=== PATIENT | female | born 1965 | race Caucasian/White ===

== ENCOUNTER 2017-09-29 09:50 | Emergency (ER) | payer OTHER ==
[~2017-09-29] VITALS: Ht 157.5 cm; Wt 74.4 kg
[~2017-09-29 09:50] MED LIST: CMP5 PO; DRGTP75 TD; EFF375 PO; OXYC-57 PO
[2017-09-29 09:53] VITALS: BP 152/75; PULSE 94; TEMP 36.7; O2SAT 97; Ht 157.5 cm; Wt 74.4 kg
[2017-09-29] MEDS ORDERED: hydrOXYzine HCL 25 MG TAB PO STA (10:10)
[2017-09-29] MEDS ORDERED: CLONAZEPAM 0.5 MG TAB PO STA (10:10)
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
[2017-09-29] MEDS ORDERED: HYDR50CA2 PO (10:21)
[2017-09-29] MEDS ORDERED: CLON0.5T9 PO (10:21)
[2017-09-29] MEDS ORDERED: BACL1TAB PO (10:21)
[2017-09-29] MEDS ORDERED: DICY20TA35 PO (10:23)
[2017-09-29] MEDS ORDERED: PRAZ1CAP10 PO (10:23)
[2017-09-29] MEDS ORDERED: ZOLP10TA PO (10:23)
[2017-10-24] MEDS ORDERED: KLN/5 PO (11:43)
[2017-10-31] MEDS ORDERED: KLN/5 PO (09:25)
[2017-11-25] MEDS ORDERED: BUPR-83 PO (10:13)
[2017-11-25] MEDS ORDERED: KLN/5 PO (10:13)
[2017-11-25] MEDS ORDERED: MELA1TAB5 PO (11:43)
[2017-12-23] MEDS ORDERED: DICY20TA10 PO ×2 (10:11→15:11)
[2017-12-23] MEDS ORDERED: BACL10TA PO (10:13)
[2017-12-23] MEDS ORDERED: HYDR50CA2 PO (10:13)
[2017-12-23] MEDS ORDERED: ESCI1TAB10 PO (10:23)
[2017-12-23] MEDS ORDERED: ACET-1256 PO (11:45)
[2017-12-23] MEDS ORDERED: PRAZ2CAP3 PO (13:37)
[2017-12-23] MEDS ORDERED: METH10CO PO (13:44)
[2017-12-23] MEDS ORDERED: ZOLP10TA PO (13:44)
== END 2017-09-29 10:48 | disposition home or self-care (01) ==
LOC: C.EDB 09:52 → C.EDA 10:48
DX: F41.9 Anxiety disorder, unspecified (principal); M54.9 Dorsalgia, unspecified; G89.29 Other chronic pain; K58.9 Irritable bowel syndrome, unspecified; F17.210 Nicotine dependence, cigarettes, uncomplicated; Z79.899 Other long term (current) drug therapy

== ENCOUNTER 2017-10-24 10:21 | Inpatient (IN) | payer OTHER ==
[~2017-10-24] VITALS: Ht 157.5 cm; Wt 74.3 kg
[~2017-10-24 10:21] MED LIST changes: +BACL1TAB PO; +CLON0.5T3 PO; -CMP5 PO; +DICY20TA35 PO; -DRGTP75 TD; -EFF375 PO; +ESCI1TAB10 PO; +HYDR50CA2 PO; -OXYC-57 PO; +PRAZ1CAP10 PO; +ZOLP10TA PO
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
[2017-10-24 11:40] LABS: BASO % 0.2 %; BASO ABS # 0.02 K/uL (0-0.2); EOS % 0.1 %; EOS ABS # 0.01 K/uL (0-0.5); HEMATOCRIT 33.9 % (37-47); HEMOGLOBIN 11.7 g/dL (12.0-16.0); IG# 0.02 K/uL (0.00-0.02); LYMPH % 26.3 %; MEAN CELL VOLUME 91.4 fL (80-100); MEAN CORPUSCULAR HEMOGLOBIN 31.5 pg (25-34); MEAN CORPUSCULAR HGB CONC 34.5 g/dl (32-36); MEAN PLATELET VOLUME 8.1 fL (7.4-10.4); MONO % 5.9 %; MONO ABS # 0.52 K/uL (0.11-0.59); NEUT % 67.3 %; NEUT ABS # 5.87 K/uL (1.4-6.5); PLATELET COUNT 361 K/uL (130-400); RED CELL DISTRIBUTION WIDTH CV 13.2 % (11.5-14.5); RED CELL DISTRIBUTION WIDTH SD 44.1 fL (36.4-46.3); WHITE BLOOD COUNT 8.74 K/uL (4.8-10.8)
[2017-10-24] MEDS ORDERED: CLON0.5T3 PO (11:43)
[2017-10-24] MEDS ORDERED: MELA1TAB5 PO (11:43)
[2017-10-24] MEDS ORDERED: BACL10TA PO ×2 (11:43→17:16)
[2017-10-24] MEDS ORDERED: METHADONE LIQUID PO (11:43)
[2017-10-24] MEDS ORDERED: ACET-1256 PO (11:45)
[2017-10-24] MEDS ORDERED: HYDR50CA2 PO ×2 (11:51→13:37)
[2017-10-24 12:02] LABS: CALCIUM 9.4 mg/dl (8.5-10.1); CREATININE 0.76 mg/dl (0.60-1.20); POTASSIUM 3.7 mmol/L (3.5-5.1)
[2017-10-24 12:12] LABS: TOTAL PROTEIN 7.7 gm/dl (6.4-8.2)
[2017-10-24] MEDS ORDERED: hydrOXYzine HCL 25 MG TAB PO STA (12:37)
[2017-10-24] MEDS ORDERED: PRAZ2CAP3 PO (13:37)
[2017-10-24 13:46] VITALS: O2SAT 97
[2017-10-24] MEDS ORDERED: ALUMINUM/MAGNESIUM SUSP 30 ML UDC PO PRN (14:45)
[2017-10-24] MEDS ORDERED: hydrOXYzine HCL 25 MG TAB PO PRN (14:45)
[2017-10-24] MEDS ORDERED: MAGNESIUM HYDROXIDE SUSP 30 ML UDC PO PRN (14:45)
[2017-10-24 14:46] VITALS: BP 137/82; PULSE 76; TEMP 37.1; BMI 30.0
[2017-10-24] MEDS: ACETAMINOPHEN 325 MG TAB PO PRN (16:26)
[2017-10-24] MEDS: NICOTINE POLACRILEX 2 MG GUM MT PRN ×2 (18:28→20:47)
[2017-10-24] MEDS: NICOTINE 21 MG/24 HR TDSY TD SCH (19:02)
[2017-10-24] MEDS: IBUPROFEN 200 MG TAB PO PRN (19:33)
[2017-10-24] MEDS: CLONAZEPAM 0.5 MG TAB PO SCH ×2 (19:36→22:45)
[2017-10-24] MEDS: DICYCLOMINE HCL 20 MG TAB PO SCH ×2 (20:05→22:45)
[2017-10-24] MEDS: BACLOFEN TAB 20 MG TAB PO SCH (21:45)
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
[2017-10-24] MEDS ORDERED: PRAZOSIN HCL 1 MG CAP PO SCH (22:00)
[2017-10-24] MEDS: ZOLPIDEM TARTRATE 10 MG TAB PO SCH (22:45)
[2017-10-25 06:43] VITALS: BP_SYST 106; BP_SYST 112; BP_DIAS 70; BP_DIAS 74; PULSE 107; PULSE 89; TEMP 36.7
[2017-10-25] MEDS: ACETAMINOPHEN 325 MG TAB PO PRN (07:04)
[2017-10-25] MEDS: NICOTINE POLACRILEX 2 MG GUM MT PRN ×7 (07:04→21:06)
[2017-10-25] MEDS: SODIUM CHLORIDE 0.65% NA SOLN 45 ML (OCEAN) PRN ×2 (07:05→07:34)
[2017-10-25] MEDS: METHADONE ORAL SOLN 2 MG/1ML PO SCH (08:30)
[2017-10-25] MEDS: ESCITALOPRAM OXALATE 20 MG TAB PO SCH (08:30)
[2017-10-25] MEDS: CLONAZEPAM 0.5 MG TAB PO SCH (08:30)
[2017-10-25] MEDS: BACLOFEN 10 MG TAB PO SCH (08:30)
[2017-10-25] MEDS: DICYCLOMINE HCL 20 MG TAB PO SCH ×4 (08:30→21:58)
[2017-10-25] MEDS: PATIENT'S OWN CONTROLLED MED PO SCH (08:31)
[2017-10-25] MEDS: NICOTINE 21 MG/24 HR TDSY TD SCH (08:31)
[2017-10-25] MEDS: hydrOXYzine HCL 25 MG TAB PO PRN ×4 (11:52→21:57)
--- NOTE | 2017-10-25 14:46 | Psychiatric Progress Notes ---
Progress Note Date of Service Oct 25, 2017. Interval History Saundra Dubon is a 52-year-old female admitted on Oct 24, 2017 at 14:03 who currently lives in [place], [place] with her fianceArmani. Saundra Dubon was admitted on a 201 voluntary commitment. Patient is admitted from home. The patient was brought to the ED by self-transport. Information provided by the patient is considered to be reliable. Chief Complaint "I'm still pretty anxious". Subjective Patient was seen & assessed interval progress reviewed with Treatment Team. Pt states she is still feeling rather anxious, but she was successful at taking care of ADLs and feels proud that she was able to shower and take care of hygiene activities today. She states she slept very well last evening. Some time was spent during this encounter discussing past opiate use. She states she has never abused opiates in the past, but has needed opiate pain medication to manage chronic back pain from her 7 spinal surgeries. Pt states she has tried a variety of medications, but has never diverted them or abused them. She reports past trial of Suboxone 1 year ago, which was not helpful. She states methadone has worked the best to control her pain symptoms and allow her to continue with daily activities. It was discussed with that patient that it is not our recommendation that she remain on Klonopin while taking methadone due to safety concerns and potential serious complications with concurrent use of the two medications. She is initially very resistant and unwilling for a taper of Klonopin, but after several conversations as the day progresses, she has come to terms with the suggestion to decrease Klonopin while offering Vistaril, which she reports works well for her anxiety. I informed patient that I would attempt to reach her outpatient providers to discuss their plans and in the meantime will continue with taper as explained. She denies SI currently, but depression and anxiety are ongoing. Review of Systems Psych: denies symptoms other than stated above Constitutional: chronic back pain, manageable Cardiovascular: denied GI: denied Neurologic: denied Remainder of 10 body systems also reviewed and denied other than noted above. Sleep Information Total Hours of Sleep: 5.50 Meal Information Percent of Breakfast Consumed: 0 Percent of Dinner Consumed: 100 Mental Status Exam During interview pt is: alert and oriented, cooperative Appearance: appropriately dressed, appropriately groomed Eye contact is: good Motor behavior is: steady gait & station, no abnormal motor movements Speech: normal in rate, rhythm & volume Affect: mood congruent, depressed, anxious Mood is: anxious Thought process: goal directed, linear, logical Thought content: reality based without delusions Suicidal thought are: denied (currently, thoughts to OD leading to admission), Plan: present (OD on prescriptions or use carbon monoxide), Intent: denied Homicidal thoughts are: denied Hallucinations: denies auditory, denies visual Cognition: memory grossly intact, attention grossly intact, language grossly intact Intelligence estimated to be: consistent with level of education Insight: fair Judgement: fair Impression Improvement in symptoms since admission. Pt reports better ability to perform ADLs and has showered and groomed since admission. Previous stable on current medication regimen without side effects. Due to recent SI and depression, will plan to add Wellbutrin 100mg BID for depressive symptoms. Pt also has reported decreased libido which may respond well to addition of Wellbutrin. Pt states she has tolerated well in the past and is in agreement to adding the medication. Risks, benefits, side effects, and alternatives were discussed. Pt verbalized understanding. Klonopin decreased to 0.25mg BID as not appropriate for her to continue on benzodiazepine and methadone. Pt has orders for prn Vistaril and can make other plans to augment for potential increase in anxiety as well. Requires inpatient hospitalization at this time due to high risk of suicide attempt. If risk factors are not mitigated and processed prior to discharge, she is at high risk for decompensation. Plan (1) Suicidal ideation 10/24 - Every 15 minute checks for safety - Involvement of identified support to establish and encourage safety planning - Encourage participation in group activities and therapy (2) Major depressive disorder, recurrent severe without psychotic features 10/24 - Continue home medications: escitalopram 20mg daily, Klonopin 0.5mg BID, Vistaril 50mg BID as patient feels they have been rather helpful. Will re- evaluate once collateral information is gained from patient's outpatient providers. Ordered home doses of Ambien 10mg and melatonin 3mg for sleep difficulty. - Encourage family meeting with fiance or children when appropriate. - Encourage participation in group activities and therapy while on the unit - Coordination of care with outpatient providers. 10/25 - Wellbutrin 100mg BID (7-1400) added to patient's current dose of escitalopram 20mg. Risks, benefits, alternatives, and side effects discussed prior to starting medication. Pt has tolerated medication well in the past and verbalizes understanding. - Encourage family meeting with identified supports. - Encourage participation in groups while admitted to the unit. (3) Generalized anxiety disorder 10/24 - Ordered current home medications of Klonopin 0.5mg BID and Vistaril 50mg BID scheduled for anxiety. Will assess level of anxiety while on the unit and determine if alteration of medication regimen is appropriate. 10/25 - Plan to decrease Klonopin to .25mg BID as it is not appropriate for patient to be on benzodiazepine and methadone. Will continue to taper Klonopin and adjust Vistaril or add alternative agent as needed once anxiety level has been assessed. Restarted Vistaril 25mg q4h prn which can be given between her prn BID Vistaril 50mg. - Call placed to pt's outpatient prescriber, Dr. Cruz at [facility] - [phone] for [place] office. Left message to discuss Klonopin taper as patient has been undergoing the process on an outpatient basis. Pt reports she has been on 0.5mg BID for the past 6 months. - Pt is aware that our recommendation is to taper Klonopin dose and eventually discontinue due to safety concerns with current involvement with the methadone clinic. She is resistant to the change but has respected that we are reaching out to her outpatient providers to provide collateral information. At this time, will order Klonopin 0.25mg BID to begin taper. Pt will not be provided with prescription upon discharge from the hospital and we hope to hear from her outpatient provider to assist with this process. (4) Back pain 10/24 - Pt currently treated at methadone clinic. Current dose of 186mg liquid PO daily was verified with [facility] and dosing was ordered. Pt is also prescribed baclofen for chronic back and neck pain resulting from 7 spinal surgeries. Pt requested Tylenol and Advil prn for back pain and pain related to fibromyalgia as well. Pt's admission criteria reviewed with Dr. Francisco who supplied admission orders. No changes to medication regimen at this time, but ongoing review with supervision physicians during her stay to assess treatment plan. Discharge / Aftercare Planning Primary Care Physician: Name: Lj/DALY Therapist: Name: Anne[facility] Case Manager: Name: None Visit Code E&M Code: 49852 Inventory Assets Strengths: willingness for treatment, supportive family, established outpatient providers Needs: mediate risk factors, education and processing of depressive and anxiety symptoms. Risk Factors Assessment : Yes /single/: Yes Health problems: Yes Mental Health Diagnoses: Yes Substance use disorders: No Previous attempt: No Previous psychiatric stay: Yes Hopelessness: Yes Smoker: Yes Protective Factors Assessment Gnosticism beliefs: Yes : No Responsible for young children: No Employed: No Stable relationships: Yes Supportive family: Yes Data Vital Signs Last 24 Hrs: Date Time Temp Pulse Resp B/P (MAP) Pulse Ox O2 Delivery O2 Flow Rate FiO2 10/25/17 06:43 36.7 107 18 112/74 89 106/70 10/24/17 14:46 37.1 76 16 137/82 Meds Administered Last 24 Hrs: Meds Administered (Past 24Hrs) Medications (Trade) Dose Ordered Sig/Raymond Route Start Time Stop Time Status Last Admin Dose Admin Hydroxyzine HCl (Vistaril Tab) 25 mg NOW STAT PO 10/24/17 12:37 10/24/17 18:37 DC 10/24/17 12:44 25 MG Acetaminophen (Tylenol Tab) 650 mg Q4H PRN PO 10/24/17 14:45 11/23/17 14:44 10/25/17 07:04 650 MG Sodium Chloride ([place] Nasal [place]) PRN PRN NA 10/24/17 14:45 11/23/17 14:44 10/25/17 07:34 1 SPRAYS Hydroxyzine HCl (Vistaril Tab) 25 mg Q4H PRN PO 10/24/17 14:45 10/24/17 18:37 DC 10/24/17 16:24 25 MG Nicotine (Nicoderm Cq 21MG Patch) 1 patch QAM TD 10/25/17 09:00 10/25/17 11:52 DC 10/25/17 08:31 1 PATCH Nicotine Polacrilex (Nicorette 2MG Gum) 1 piece Q2H PRN MT 10/24/17 18:15 10/25/17 11:52 DC 10/25/17 09:12 1 PIECE Ibuprofen (Advil Tab) 400 mg TID PRN PO 10/24/17 18:15 11/23/17 18:14 10/24/17 19:33 400 MG Baclofen (Lioresal Tab) 10 mg QAM PO 10/25/17 09:00 11/24/17 08:59 10/25/17 08:30 10 MG Baclofen (Lioresal Tab) 20 mg HS PO 10/24/17 22:00 11/23/17 21:59 10/24/17 21:45 20 MG Clonazepam (Klonopin Tab) 0.5 mg BID PO 10/24/17 18:30 10/25/17 13:59 DC 10/25/17 08:30 0.5 MG Dicyclomine HCl (Bentyl Tab) 20 mg QID PO 10/24/17 18:30 11/23/17 18:29 10/25/17 11:56 20 MG Escitalopram Oxalate (Lexapro Tab) 20 mg QAM PO 10/25/17 09:00 11/24/17 08:59 10/25/17 08:30 20 MG Hydroxyzine HCl (Vistaril Tab) 50 mg BID PRN PO 10/24/17 18:30 11/23/17 18:29 10/25/17 11:52 50 MG Prazosin HCl (Prazosin) 4 mg HS PO 10/24/17 22:00 11/23/17 21:59 10/24/17 21:46 4 MG Zolpidem Tartrate (Ambien Tab) 10 mg HS PO 10/24/17 22:00 11/23/17 21:59 10/24/17 22:45 10 MG Methadone HCl (Methadone HCl) 186 mg QAM PO 10/25/17 09:00 11/08/17 08:59 10/25/17 08:30 186 MG Non-Formulary Medication (Patient'S Own Controlled Med) 1 ea QAM PO 10/25/17 09:00 11/08/17 08:59 10/25/17 08:31 1 EA Nicotine Polacrilex (Nicorette 2MG Gum) Chew and "park" in cheek ... Q2H PRN MT 10/25/17 12:00 11/23/17 18:14 10/25/17 13:30 2 PIECE
[2017-10-25] MEDS: GUAIFENESIN 600 MG TABCR PO PRN (16:32)
[2017-10-25] MEDS: FLUTICASONE PROPIONATE NA SPR 16 GM BTL NAE PRN (19:18)
[2017-10-25] MEDS: BACLOFEN TAB 20 MG TAB PO SCH (21:06)
[2017-10-25] MEDS: PRAZOSIN HCL 1 MG CAP PO SCH (21:57)
[2017-10-25] MEDS ORDERED: CLONAZEPAM 0.5 MG TAB PO ONE (22:00)
[2017-10-25] MEDS ORDERED: CLONAZEPAM 0.5 MG TAB PO SCH (22:00)
[2017-10-25] MEDS: IBUPROFEN 200 MG TAB PO PRN (22:01)
[2017-10-25] MEDS: ZOLPIDEM TARTRATE 10 MG TAB PO SCH (22:02)
[2017-10-26] MEDS: GUAIFENESIN 600 MG TABCR PO PRN ×2 (06:02→17:04)
[2017-10-26 06:51] VITALS: BP_SYST 105; BP_SYST 112; BP_DIAS 71; BP_DIAS 72; PULSE 85; PULSE 93; TEMP 36.8
[2017-10-26] MEDS ORDERED: hydrOXYzine HCL 25 MG TAB PO PRN (07:00)
[2017-10-26] MEDS: hydrOXYzine HCL 25 MG TAB PO PRN ×3 (07:15→21:17)
[2017-10-26] MEDS: NICOTINE POLACRILEX 2 MG GUM MT PRN ×7 (07:17→21:59)
[2017-10-26] MEDS: DICYCLOMINE HCL 20 MG TAB PO SCH ×4 (08:35→21:15)
[2017-10-26] MEDS: CLONAZEPAM 0.5 MG TAB PO SCH ×2 (08:35→21:16)
[2017-10-26] MEDS: ESCITALOPRAM OXALATE 20 MG TAB PO SCH (08:36)
[2017-10-26] MEDS: METHADONE ORAL SOLN 2 MG/1ML PO SCH (08:36)
[2017-10-26] MEDS: BACLOFEN 10 MG TAB PO SCH ×3 (08:36→21:16)
[2017-10-26] MEDS: NICOTINE 14 MG/24 HR TDSY TD SCH (08:38)
[2017-10-26] MEDS: FLUTICASONE PROPIONATE NA SPR 16 GM BTL NAE PRN (08:46)
[2017-10-26] MEDS: PATIENT'S OWN CONTROLLED MED PO SCH (08:46)
[2017-10-26] MEDS: IBUPROFEN 200 MG TAB PO PRN ×2 (09:34→21:17)
--- NOTE | 2017-10-26 10:21 | Psychiatric Progress Notes ---
Progress Note Date of Service Oct 26, 2017. Interval History Saundra Dubon is a 52-year-old female admitted on Oct 24, 2017 at 14:03 who currently lives in [place], [place] with her fianceArmani. Saundra Dubon was admitted on a 201 voluntary commitment. Patient is admitted from home. The patient was brought to the ED by self-transport. Information provided by the patient is considered to be reliable. Chief Complaint "Just a little confused about when I can get my medications". Subjective Patient was seen & assessed interval progress reviewed with Nursing. Nursing passed on that her dose of methadone should be administered at 8:30 am to provide consistency between staff and compromise with the patient's frequent requests to receive it earlier in the morning. Pt was seen today along with weekend covering psychiatrist, Dr. Nicole. Pt states she is still a bit anxious this morning. She reports that her anxiety is typically worse in the morning and improves later in the evening as she is winding down for the night. She continues to question medications and time of dosing and almost perseverating on the decreased dose of Klonopin she is aware she will be receiving today. Pt requests multiple timing changes to dosage of medications. It was explained that medication times are often scheduled around staffing availability and that we would do our best to juan m her requests where able. She states she has noticed a difference thus far with the addition of Wellbutrin and is interested in clarifying when she is able to ask for prn Vistaril. Pt reports she has been working in community meetings at setting goals and has been successful at reaching as she has called her outpatient provider and is planning to call one of her children today. She continues to take advantage of increased appetite in the evenings and has been sleeping well. Pt denies SI/HI, and A/V hallucinations. Review of Systems Psych: denies symptoms other than stated above Constitutional: denied Cardiovascular: denied GI: denied Neurologic: denied Musculoskeletal: reports chronic back pain Remainder of 10 body systems also reviewed and denied other than noted above. Sleep Information Total Hours of Sleep: 3.75 Meal Information Percent of Breakfast Consumed: 10 Percent of Lunch Consumed: 25 Percent of Dinner Consumed: 100 Mental Status Exam During interview pt is: alert and oriented, cooperative Appearance: appropriately dressed, appropriately groomed Eye contact is: good Motor behavior is: steady gait & station, no abnormal motor movements Speech: normal in rate, rhythm & volume Affect: mood congruent, irritable (defensive about medications), anxious Mood is: anxious Thought process: goal directed, linear, logical Thought content: reality based without delusions Suicidal thought are: denied (present prior to admission), Plan: present (OD on prescriptions or use carbon monoxide), Intent: denied Homicidal thoughts are: denied Hallucinations: denies auditory, denies visual Cognition: memory grossly intact, attention grossly intact, language grossly intact Intelligence estimated to be: consistent with level of education Insight: fair Judgement: fair Impression Functioning appears to have improved since admission. She continues to report anxiety that is worse in the mornings. Long discussion was had about need for reduction and discontinuation of Klonopin. She continues to be apprehensive about changing medications and is concerned about being tapered off too quickly. She was reassured that our intention is not to create anxiety and that prn medications have been provided to her for her use during this time. Attempt was made yesterday to reach her outpatient psychiatrist for feedback and recommendations on this taper, but I have not heard back from the office. She denies side effects to Wellbutrin at this time. Requires inpatient hospitalization at this time due to high risk of suicide attempt and need for medication adjustments. If risk factors are not mitigated and processed prior to discharge, she is at high risk for decompensation. Plan (1) Suicidal ideation 10/24 - Every 15 minute checks for safety - Involvement of identified support to establish and encourage safety planning - Encourage participation in group activities and therapy (2) Major depressive disorder, recurrent severe without psychotic features 10/24 - Continue home medications: escitalopram 20mg daily, Klonopin 0.5mg BID, Vistaril 50mg BID as patient feels they have been rather helpful. Will re- evaluate once collateral information is gained from patient's outpatient providers. Ordered home doses of Ambien 10mg and melatonin 3mg for sleep difficulty. - Encourage family meeting with fiance or children when appropriate. - Encourage participation in group activities and therapy while on the unit - Coordination of care with outpatient providers. 10/25 - Wellbutrin 100mg BID (7-1400) added to patient's current dose of escitalopram 20mg. Risks, benefits, alternatives, and side effects discussed prior to starting medication. Pt has tolerated medication well in the past and verbalizes understanding. - Encourage family meeting with identified supports. - Encourage participation in groups while admitted to the unit. 10/26 - Wellbutrin administration changed to 8:30 and 2:00 to allow for dose to be given with other morning medications which includes her methadone dose. - Encourage phone meeting with bryce if willing - Encourage participation in groups, specifically with focus on managing anxiety. (3) Generalized anxiety disorder 10/24 - Ordered current home medications of Klonopin 0.5mg BID and Vistaril 50mg BID scheduled for anxiety. Will assess level of anxiety while on the unit and determine if alteration of medication regimen is appropriate. 10/25 - Plan to decrease Klonopin to .25mg BID as it is not appropriate for patient to be on benzodiazepine and methadone. Will continue to taper Klonopin and adjust Vistaril or add alternative agent as needed once anxiety level has been assessed. Restarted Vistaril 25mg q4h prn which can be given between her prn BID Vistaril 50mg. - Call placed to pt's outpatient prescriber, Dr. Cruz at [facility] - for [place] office. Left message to discuss Klonopin taper as patient has been undergoing the process on an outpatient basis. Pt reports she has been on 0.5mg BID for the past 6 months. - Pt is aware that our recommendation is to taper Klonopin dose and eventually discontinue due to safety concerns with current involvement with the methadone clinic. She is resistant to the change but has respected that we are reaching out to her outpatient providers to provide collateral information. At this time, will order Klonopin 0.25mg BID to begin taper. Pt will not be provided with prescription upon discharge from the hospital and we hope to hear from her outpatient provider to assist with this process. 10/26 - Klonopin to be reduced to 0.25mg BID starting this morning. Pt aware that she has prn Vistaril available for anxiety. - Encouraged to focus on distraction techniques and ways she can better manage her anxiety to help augment medications. (4) Back pain 10/24 - Pt currently treated at methadone clinic. Current dose of 186mg liquid PO daily was verified with [facility] and dosing was ordered. Pt is also prescribed baclofen for chronic back and neck pain resulting from 7 spinal surgeries. Pt requested Tylenol and Advil prn for back pain and pain related to fibromyalgia as well. 10/26 - Baclofen was also ordered as 10mg TID rather than the 10mg qAM and 20mg qHS as listed in her med rec, per patient's request. Discharge / Aftercare Planning Primary Care Physician: Name: Lj/DALY Therapist: Name: Anne-Marie/[place] [employer]: Name: None Visit Code E&M Code: 90561 Inventory Assets Strengths: willingness for treatment, supportive family, established outpatient providers Needs: mediate risk factors, education and processing of depressive and anxiety symptoms. Risk Factors Assessment : Yes /single/: Yes Health problems: Yes Mental Health Diagnoses: Yes Substance use disorders: No Previous attempt: No Previous psychiatric stay: Yes Hopelessness: Yes Smoker: Yes Protective Factors Assessment Hindu beliefs: Yes : No Responsible for young children: No Employed: No Stable relationships: Yes Supportive family: Yes Data Vital Signs Last 24 Hrs: Date Time Temp Pulse Resp B/P (MAP) Pulse Ox O2 Delivery O2 Flow Rate FiO2 10/26/17 06:51 36.8 85 16 112/72 93 105/71 Meds Administered Last 24 Hrs: Meds Administered (Past 24Hrs) Medications (Trade) Dose Ordered Sig/Raymond Route Start Time Stop Time Status Last Admin Dose Admin Hydroxyzine HCl (Vistaril Tab) 25 mg NOW STAT PO 10/24/17 12:37 10/24/17 18:37 DC 10/24/17 12:44 25 MG Acetaminophen (Tylenol Tab) 650 mg Q4H PRN PO 10/24/17 14:45 11/23/17 14:44 10/25/17 07:04 650 MG Sodium Chloride ([place] Nasal [place]) PRN PRN NA 10/24/17 14:45 11/23/17 14:44 10/25/17 07:34 1 SPRAYS Hydroxyzine HCl (Vistaril Tab) 50 mg HSZ PRN PO 10/24/17 14:45 11/23/17 14:44 10/25/17 21:57 50 MG Hydroxyzine HCl (Vistaril Tab) 25 mg Q4H PRN PO 10/24/17 14:45 10/24/17 18:37 DC 10/24/17 16:24 25 MG Nicotine (Nicoderm Cq 21MG Patch) 1 patch QAM TD 10/25/17 09:00 10/25/17 11:52 DC 10/25/17 08:31 1 PATCH Nicotine Polacrilex (Nicorette 2MG Gum) 1 piece Q2H PRN MT 10/24/17 18:15 10/25/17 11:52 DC 10/25/17 09:12 1 PIECE Ibuprofen (Advil Tab) 400 mg TID PRN PO 10/24/17 18:15 11/23/17 18:14 10/26/17 09:34 400 MG Baclofen (Lioresal Tab) 10 mg QAM PO 10/25/17 09:00 11/24/17 08:59 10/26/17 08:36 10 MG Baclofen (Lioresal Tab) 20 mg HS PO 10/24/17 22:00 11/23/17 21:59 10/25/17 21:06 20 MG Clonazepam (Klonopin Tab) 0.5 mg BID PO 10/24/17 18:30 10/25/17 13:59 DC 10/25/17 08:30 0.5 MG Dicyclomine HCl (Bentyl Tab) 20 mg QID PO 10/24/17 18:30 11/23/17 18:29 10/26/17 08:35 20 MG Escitalopram Oxalate (Lexapro Tab) 20 mg QAM PO 10/25/17 09:00 11/24/17 08:59 10/26/17 08:36 20 MG Hydroxyzine HCl (Vistaril Tab) 50 mg BID PRN PO 10/24/17 18:30 11/23/17 18:29 10/26/17 07:15 50 MG Prazosin HCl (Prazosin) 4 mg HS PO 10/24/17 22:00 10/25/17 15:37 DC 10/24/17 21:46 4 MG Zolpidem Tartrate (Ambien Tab) 10 mg HS PO 10/24/17 22:00 11/23/17 21:59 10/25/17 22:02 10 MG Methadone HCl (Methadone HCl) 186 mg QAM PO 10/25/17 09:00 11/08/17 08:59 10/26/17 08:36 186 MG Non-Formulary Medication (Patient'S Own Controlled Med) 1 ea QAM PO 10/25/17 09:00 11/08/17 08:59 10/26/17 08:46 1 EA Nicotine Polacrilex (Nicorette 2MG Gum) Chew and "park" in cheek ... Q2H PRN MT 10/25/17 12:00 11/23/17 18:14 10/26/17 09:35 2 PIECE Fluticasone Propionate (Flonase Nasal [place]) 1-2 sprays in each nost... DAILY PRN FLAKITO 10/25/17 12:00 11/25/17 11:59 10/26/17 08:46 1 SPRAYS Nicotine (Nicoderm Cq 14MG Patch) 1 patch QAM TD 10/26/17 09:00 11/25/17 08:59 10/26/17 08:38 1 PATCH Bupropion HCl (Wellbutrin Tab) 100 mg [id number] PO 10/25/17 14:00 11/24/17 13:59 10/26/17 07:14 100 MG Guaifenesin (Mucinex Contr Rel Tab) 600 mg Q12 PRN PO 10/25/17 14:30 11/24/17 14:29 10/26/17 06:02 600 MG Clonazepam (Klonopin Tab) 0.25 mg BID PO 10/26/17 09:00 11/23/17 18:29 10/26/17 08:35 0.25 MG Clonazepam (Klonopin Tab) 0.5 mg HS ONCE PO 10/25/17 22:00 10/25/17 22:01 DC 10/25/17 21:06 0.5 MG Prazosin HCl (Prazosin) 4 mg HS PO 10/25/17 22:00 11/23/17 21:59 10/25/17 21:57 4 MG
[2017-10-26 13:43] VITALS: BP 105/71; PULSE 85; PULSE 93; TEMP 36.8; Ht 157.5 cm; Wt 74.3 kg
[2017-10-26] MEDS: ACETAMINOPHEN 325 MG TAB PO PRN (15:57)
[2017-10-26] MEDS: ZOLPIDEM TARTRATE 10 MG TAB PO SCH (21:15)
[2017-10-26] MEDS: PRAZOSIN HCL 1 MG CAP PO SCH (21:16)
[2017-10-27 06:59] VITALS: BP_SYST 102; BP_SYST 122; BP_DIAS 66; BP_DIAS 69; PULSE 106; PULSE 92; TEMP 36.8
[2017-10-27] MEDS: NICOTINE POLACRILEX 2 MG GUM MT PRN ×7 (08:13→20:35)
[2017-10-27] MEDS: PATIENT'S OWN CONTROLLED MED PO SCH (08:27)
--- NOTE | 2017-10-27 08:28 | Psychiatric Progress Notes ---
Progress Note Date of Service Oct 27, 2017. Interval History Saundra Dubon is a 52-year-old female admitted on Oct 24, 2017 at 14:03 who currently lives in [place], [place] with her fiance Armani. Saundra Dubon was admitted on a 201 voluntary commitment. Patient is admitted from home. The patient was brought to the ED by self-transport. Information provided by the patient is considered to be reliable. Chief Complaint "I am wondering about my vistaril dose and the timing". Subjective Patient was seen & assessed interval progress reviewed with Treatment Team 3.75hours+ as she returned to sleep after change of shift for a few hours which was new for her, she continues to perseverate on the klonopin change she is focussed on medications and doses and times today wanting to talk about the vistaril dose and time and per staff many times yesterday AM, Mid-day and PM staff per SW she is defensive against a family meeting stating essie could not come in and that she does not want him called by phone feeling he has too much on his plate She wants to discuss the timing of her vistaril and we did, but then provider redirected her to discuss thoughts and feelings and mood. She rates her anxiety as a 7/10 "but I did not wake up panicky this AM which was new" ongoing intrusive thoughts of MST and NM of the same. SHe falls asleep well but then wakes around 3-4am and prior to last night had difficulty falling back to sleep, but this AM did return to sleep and that felt good She rates her mood as a 5/10. She perseverates on past and meds and needs consistent redirection to talking about the [id number]. She notes she is not isolating as much yesterday and today, and took a shower yesterday as signs of improvement "a little better I think." She continues to avoid contacting her kids "I don't want to burden them" Discussed not taking ownership for others reactions or emotions, and secondarily she notes her kids are supportive and kind when she does contact them. She denies having SI here, but continues to have high anxiety about filing [facility]. SHe denies obvious SE from the wellbutrin addition this last weekend. Review of Systems See subjective as above, and also has ongoing pain. o/w denies physical concern on ROS Sleep Information Total Hours of Sleep: 3.75 Meal Information Percent of Breakfast Consumed: 10 Percent of Lunch Consumed: 25 Percent of Dinner Consumed: 100 Mental Status Exam During interview pt is: alert and oriented, cooperative Appearance: appropriately dressed, appropriately groomed Eye contact is: good Motor behavior is: steady gait & station, no abnormal motor movements Speech: normal in rate, rhythm & volume (voluble and will fill up the time talking if not redircted, not pressured) Affect: mood congruent, anxious Mood is: anxious Thought process: goal directed, linear, logical, perseveration (on meds, doses and times, need redirection to focus on [id number] emotions, thoughts) Thought content: reality based without delusions Suicidal thought are: denied (present prior to admission), Plan: present (OD on prescriptions or use carbon monoxide), Intent: denied Homicidal thoughts are: denied Hallucinations: denies auditory, denies visual Cognition: memory grossly intact, attention grossly intact, language grossly intact Intelligence estimated to be: consistent with level of education Insight: fair Judgement: fair Impression Functioning appears to have improved since admission. She continues to report anxiety that is worse in the mornings. Long discussion was had about need for reduction and discontinuation of Klonopin. She continues to be apprehensive about changing medications and is concerned about being tapered off too quickly. She was reassured that our intention is not to create anxiety and that prn medications have been provided to her for her use during this time. Attempt was made yesterday to reach her outpatient psychiatrist for feedback and recommendations on this taper, but I have not heard back from the office. She denies side effects to Wellbutrin at this time. Requires inpatient hospitalization at this time due to high risk of suicide attempt and need for medication adjustments. If risk factors are not mitigated and processed prior to discharge, she is at high risk for decompensation. Plan (1) Suicidal ideation 10/24 - Every 15 minute checks for safety - Involvement of identified support to establish and encourage safety planning - Encourage participation in group activities and therapy (2) Major depressive disorder, recurrent severe without psychotic features 10/24 - Continue home medications: escitalopram 20mg daily, Klonopin 0.5mg BID, Vistaril 50mg BID as patient feels they have been rather helpful. Will re- evaluate once collateral information is gained from patient's outpatient providers. Ordered home doses of Ambien 10mg and melatonin 3mg for sleep difficulty. - Encourage family meeting with fiance or children when appropriate. - Encourage participation in group activities and therapy while on the unit - Coordination of care with outpatient providers. 10/25 - Wellbutrin 100mg BID (7-1400) added to patient's current dose of escitalopram 20mg. Risks, benefits, alternatives, and side effects discussed prior to starting medication. Pt has tolerated medication well in the past and verbalizes understanding. - Encourage family meeting with identified supports. - Encourage participation in groups while admitted to the unit. 10/26 - Wellbutrin administration changed to 8:30 and 2:00 to allow for dose to be given with other morning medications which includes her methadone dose. - Encourage phone meeting with fiance if willing - Encourage participation in groups, specifically with focus on managing anxiety. 10/27 - continue medications as prescribed as we are seeing tolerability of wellbutrin and some initial benefit - encouraged her to consider family meeting which she has declined - encouraged her to consider her need for control and how that may keep her from sharing with others out of fear that they will react in a way she has no control over (e.g. they will feel burdened) as well as the desire to defend against her emotions by focussing on the details of her medications to avoid her own emotions and thoughts She participates and notes she will consider these concepts (> 17min spent in supportive dynamic therapy on these topics) (3) Generalized anxiety disorder 10/24 - Ordered current home medications of Klonopin 0.5mg BID and Vistaril 50mg BID scheduled for anxiety. Will assess level of anxiety while on the unit and determine if alteration of medication regimen is appropriate. 10/25 - Plan to decrease Klonopin to .25mg BID as it is not appropriate for patient to be on benzodiazepine and methadone. Will continue to taper Klonopin and adjust Vistaril or add alternative agent as needed once anxiety level has been assessed. Restarted Vistaril 25mg q4h prn which can be given between her prn BID Vistaril 50mg. - Call placed to pt's outpatient prescriber, Dr. Cruz at [facility] - for [place] office. Left message to discuss Klonopin taper as patient has been undergoing the process on an outpatient basis. Pt reports she has been on 0.5mg BID for the past 6 months. - Pt is aware that our recommendation is to taper Klonopin dose and eventually discontinue due to safety concerns with current involvement with the methadone clinic. She is resistant to the change but has respected that we are reaching out to her outpatient providers to provide collateral information. At this time, will order Klonopin 0.25mg BID to begin taper. Pt will not be provided with prescription upon discharge from the hospital and we hope to hear from her outpatient provider to assist with this process. 10/26 - Klonopin to be reduced to 0.25mg BID starting this morning. Pt aware that she has prn Vistaril available for anxiety. - Encouraged to focus on distraction techniques and ways she can better manage her anxiety to help augment medications. 10/27 - see above as from 10/26 and for depression/mood 10/26 and 10/27 (4) Back pain 10/24 - Pt currently treated at methadone clinic. Current dose of 186mg liquid PO daily was verified with [facility] clinic and dosing was ordered. Pt is also prescribed baclofen for chronic back and neck pain resulting from 7 spinal surgeries. Pt requested Tylenol and Advil prn for back pain and pain related to fibromyalgia as well. 10/26 - Baclofen was also ordered as 10mg TID rather than the 10mg qAM and 20mg qHS as listed in her med rec, per patient's request. Discharge / Aftercare Planning Primary Care Physician: Name: Lj/DALY Therapist: Name: Anne-Marie/[employer] Laboratory Technician: Name: None Inventory Assets Strengths: willingness for treatment, supportive family, established outpatient providers Needs: mediate risk factors, education and processing of depressive and anxiety symptoms. Risk Factors Assessment : Yes /single/: Yes Health problems: Yes Mental Health Diagnoses: Yes Substance use disorders: No Previous attempt: No Previous psychiatric stay: Yes Hopelessness: Yes Smoker: Yes Protective Factors Assessment Yarsanism beliefs: Yes : No Responsible for young children: No Employed: No Stable relationships: Yes Supportive family: Yes Data Vital Signs Last 24 Hrs: Date Time Temp Pulse Resp B/P (MAP) Pulse Ox O2 Delivery O2 Flow Rate FiO2 10/27/17 06:59 36.8 92 16 102/66 106 122/69 10/26/17 13:43 36.8 85 16 105/71 93 Meds Administered Last 24 Hrs: Meds Administered (Past 24Hrs) Medications (Trade) Dose Ordered Sig/Raymond Route Start Time Stop Time Status Last Admin Dose Admin Nicotine (Nicoderm Cq 21MG Patch) 1 patch QAM TD 10/25/17 09:00 10/25/17 11:52 DC 10/25/17 08:31 1 PATCH Baclofen (Lioresal Tab) 10 mg QAM PO 10/25/17 09:00 10/26/17 11:00 DC 10/26/17 08:36 10 MG Escitalopram Oxalate (Lexapro Tab) 20 mg QAM PO 10/25/17 09:00 11/24/17 08:59 10/26/17 08:36 20 MG Methadone HCl (Methadone HCl) 186 mg QAM PO 10/25/17 09:00 11/08/17 08:59 10/26/17 08:36 186 MG Non-Formulary Medication (Patient'S Own Controlled Med) 1 ea QAM PO 10/25/17 09:00 11/08/17 08:59 10/26/17 08:46 1 EA Nicotine Polacrilex (Nicorette 2MG Gum) Chew and "park" in cheek ... Q2H PRN MT 10/25/17 12:00 11/23/17 18:14 10/26/17 21:59 2 PIECE Fluticasone Propionate (Flonase Nasal [place]) 1-2 sprays in each nost... DAILY PRN FLAKITO 10/25/17 12:00 11/25/17 11:59 10/26/17 08:46 1 SPRAYS Nicotine (Nicoderm Cq 14MG Patch) 1 patch QAM TD 10/26/17 09:00 11/25/17 08:59 10/26/17 08:38 1 PATCH Bupropion HCl (Wellbutrin Tab) 100 mg [id number] PO 10/25/17 14:00 10/26/17 11:00 DC 10/26/17 07:14 100 MG Guaifenesin (Mucinex Contr Rel Tab) 600 mg Q12 PRN PO 10/25/17 14:30 11/24/17 14:29 10/26/17 17:04 600 MG Clonazepam (Klonopin Tab) 0.25 mg BID PO 10/26/17 09:00 11/23/17 18:29 10/26/17 21:16 0.25 MG Clonazepam (Klonopin Tab) 0.5 mg HS ONCE PO 10/25/17 22:00 10/25/17 22:01 DC 10/25/17 21:06 0.5 MG Hydroxyzine HCl (Vistaril Tab) 25 mg Q4 PRN PO 10/26/17 07:00 11/25/17 06:59 10/26/17 12:04 25 MG Prazosin HCl (Prazosin) 4 mg HS PO 10/25/17 22:00 11/23/17 21:59 10/26/17 21:16 4 MG Baclofen (Lioresal Tab) 10 mg TID PO 10/26/17 14:00 11/24/17 08:59 10/26/17 21:16 10 MG Bupropion HCl (Wellbutrin Tab) 100 mg BID@0900,1400 PO 10/26/17 14:00 11/25/17 13:59 10/26/17 13:50 100 MG
[2017-10-27] MEDS: DICYCLOMINE HCL 20 MG TAB PO SCH ×4 (08:52→21:14)
[2017-10-27] MEDS: CLONAZEPAM 0.5 MG TAB PO SCH ×2 (08:52→21:13)
[2017-10-27] MEDS: METHADONE ORAL SOLN 2 MG/1ML PO SCH (08:53)
[2017-10-27] MEDS: ESCITALOPRAM OXALATE 20 MG TAB PO SCH (08:53)
[2017-10-27] MEDS: BACLOFEN 10 MG TAB PO SCH ×3 (08:53→21:14)
[2017-10-27] MEDS: NICOTINE 14 MG/24 HR TDSY TD SCH (08:54)
[2017-10-27] MEDS: FLUTICASONE PROPIONATE NA SPR 16 GM BTL NAE PRN (08:55)
[2017-10-27] MEDS: GUAIFENESIN 600 MG TABCR PO PRN ×2 (08:55→18:33)
[2017-10-27] MEDS: ACETAMINOPHEN 325 MG TAB PO PRN ×2 (09:03→19:57)
[2017-10-27] MEDS: hydrOXYzine HCL 25 MG TAB PO PRN ×2 (12:49→22:03)
[2017-10-27] MEDS: IBUPROFEN 200 MG TAB PO PRN (17:09)
[2017-10-27] MEDS: ZOLPIDEM TARTRATE 10 MG TAB PO SCH (21:13)
[2017-10-27] MEDS: PRAZOSIN HCL 1 MG CAP PO SCH (21:14)
[2017-10-28 06:52] VITALS: BP_SYST 104; BP_SYST 119; BP_DIAS 63; BP_DIAS 71; PULSE 85; PULSE 98; TEMP 36.7
[2017-10-28] MEDS: NICOTINE POLACRILEX 2 MG GUM MT PRN ×7 (07:07→20:44)
[2017-10-28] MEDS: ACETAMINOPHEN 325 MG TAB PO PRN (07:08)
[2017-10-28] MEDS: GUAIFENESIN 600 MG TABCR PO PRN (08:13)
[2017-10-28] MEDS: FLUTICASONE PROPIONATE NA SPR 16 GM BTL NAE PRN (08:14)
[2017-10-28] MEDS: DICYCLOMINE HCL 20 MG TAB PO SCH ×4 (08:35→21:12)
[2017-10-28] MEDS: NICOTINE 14 MG/24 HR TDSY TD SCH (08:36)
[2017-10-28] MEDS: BACLOFEN 10 MG TAB PO SCH ×3 (08:36→21:12)
[2017-10-28] MEDS: CLONAZEPAM 0.5 MG TAB PO SCH ×2 (08:36→21:11)
[2017-10-28] MEDS: ESCITALOPRAM OXALATE 20 MG TAB PO SCH (08:36)
[2017-10-28] MEDS: METHADONE ORAL SOLN 2 MG/1ML PO SCH (08:37)
[2017-10-28] MEDS: PATIENT'S OWN CONTROLLED MED PO SCH (08:45)
[2017-10-28] MEDS: hydrOXYzine HCL 25 MG TAB PO PRN ×2 (12:00→16:20)
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
[2017-10-28] MEDS: IBUPROFEN 200 MG TAB PO PRN ×2 (14:39→22:15)
[2017-10-28] MEDS: ZOLPIDEM TARTRATE 10 MG TAB PO SCH (21:11)
[2017-10-28] MEDS: PRAZOSIN HCL 1 MG CAP PO SCH (21:12)
[2017-10-29 06:57] VITALS: BP_SYST 110; BP_SYST 114; BP_DIAS 73; BP_DIAS 77; PULSE 80; PULSE 92; TEMP 36.7
[2017-10-29] MEDS: FLUTICASONE PROPIONATE NA SPR 16 GM BTL NAE PRN (07:04)
[2017-10-29] MEDS: NICOTINE POLACRILEX 2 MG GUM MT PRN ×8 (07:04→22:11)
[2017-10-29] MEDS: DICYCLOMINE HCL 20 MG TAB PO SCH ×4 (08:34→22:09)
[2017-10-29] MEDS: ESCITALOPRAM OXALATE 20 MG TAB PO SCH (08:35)
[2017-10-29] MEDS: BACLOFEN 10 MG TAB PO SCH ×3 (08:35→22:10)
[2017-10-29] MEDS: CLONAZEPAM 0.5 MG TAB PO SCH ×2 (08:36→22:10)
[2017-10-29] MEDS: GUAIFENESIN 600 MG TABCR PO PRN (08:37)
[2017-10-29] MEDS: ACETAMINOPHEN 325 MG TAB PO PRN ×2 (08:41→20:05)
[2017-10-29] MEDS: NICOTINE 14 MG/24 HR TDSY TD SCH (08:45)
[2017-10-29] MEDS: METHADONE ORAL SOLN 2 MG/1ML PO SCH (09:03)
[2017-10-29] MEDS: PATIENT'S OWN CONTROLLED MED PO SCH (09:03)
--- NOTE | 2017-10-29 13:10 | Psychiatric Progress Notes ---
Progress Note Date of Service Oct 29, 2017. Interval History Saundra Dubon is a 52-year-old female admitted on Oct 24, 2017 at 14:03 who currently lives in [place], [place] with her fianceArmani. Saundra Dubon was admitted on a 201 voluntary commitment. Patient is admitted from home. The patient was brought to the ED by self-transport. Information provided by the patient is considered to be reliable. Chief Complaint "Sad, like I have a heavy chest. ". Subjective Patient was seen & assessed interval progress reviewed with Treatment Team. The patient reports that although she is feeling better than on admission, she is still feeling depressed. She endorses poor concentration, being unable to read, something she used to love to do. She is poorly motivated, but feels this is slightly improved since the addition of Wellbutrin. She feels guilty for being depressed, not calling her children very often. Today she denies anxiety, but feels like she could easily cry, and has a heavy chest (no arm or neck pain, or SOB). She has back pain today and has a stooped posture, is using hot showers to help relax her back. She says that her SI are less frequent, but still has times when she thinks she would be better off so that she doesn't have to deal with her problems every day. Review of Systems Constitutional: + fatigue ENT: No hearing loss, No unusual epistaxis, No nasal symptoms, No sore throat, No tinnitus, No dental problems, No trouble swallowing, No problem reported Respiratory: No cough, No sputum, No wheezing, No shortness of breath, No dyspnea on exertion, No dyspnea at rest, No hemoptysis, No problem reported Cardiovascular: No chest pain, No orthopnea, No PND, No edema, No claudication , No palpitations, No problem reported Abdomen: + problem reported (improved appetite) Musculoskeletal: + problem reported (back pain) Neurologic: No memory loss, No paralysis, No weakness, No numbness/tingling, No vertigo, No balance problems, No problem reported Psychiatric: + depression symptoms Integumentary: No rash, No itch, No new/changing skin lesions, No color change , No bleeding, No problem reported Sleep Information Total Hours of Sleep: 4.50 Meal Information Percent of Breakfast Consumed: 50 Percent of Lunch Consumed: 25 Percent of Dinner Consumed: 50 Mental Status Exam During interview pt is: alert and oriented, cooperative Appearance: appropriately dressed, appropriately groomed, disheveled, other ( poor dentition) Eye contact is: good Motor behavior is: steady gait & station, no abnormal motor movements Speech: normal in rate, rhythm & volume (excessive speech) Affect: mood congruent, flat Mood is: depressed, anxious Thought process: goal directed Thought content: reality based without delusions Suicidal thought are: denied (present prior to admission) Homicidal thoughts are: denied Hallucinations: denies auditory, denies visual Cognition: memory grossly intact, attention grossly intact, language grossly intact Intelligence estimated to be: consistent with level of education Insight: fair Judgement: fair Medication Trials - Effexor - worked well - Cymbalta - Neurontin - dizziness - Zoloft - Prozac - Wellbutrin Impression Slowly improving but still with passive thoughts of . Feels like she has more energy with Wellbutrin. Does not feel safe to leave the hospital and so we 'll recommend ongoing inpatient stay. Reports better appetite but still eating less than 50% at each meal. She has spoken with her fianc about a family meeting and he is refusing to participate, not feeling comfortable talking with other people. We will coordinate her care with all of her providers and encourage her to continue to use her coping strategies Plan (1) Suicidal ideation 10/24 - Every 15 minute checks for safety - Involvement of identified support to establish and encourage safety planning - Encourage participation in group activities and therapy 10/28 - Encourage patient to have meeting with fiance and any other OP supports she 'd be willing for. Needs to work on safety plan. (2) Major depressive disorder, recurrent severe without psychotic features 10/24 - Continue home medications: escitalopram 20mg daily, Klonopin 0.5mg BID, Vistaril 50mg BID as patient feels they have been rather helpful. Will re- evaluate once collateral information is gained from patient's outpatient providers. Ordered home doses of Ambien 10mg and melatonin 3mg for sleep difficulty. - Encourage family meeting with fiance or children when appropriate. - Encourage participation in group activities and therapy while on the unit - Coordination of care with outpatient providers. 10/25 - Wellbutrin 100mg BID (7-1400) added to patient's current dose of escitalopram 20mg. Risks, benefits, alternatives, and side effects discussed prior to starting medication. Pt has tolerated medication well in the past and verbalizes understanding. - Encourage family meeting with identified supports. - Encourage participation in groups while admitted to the unit. 10/26 - Wellbutrin administration changed to 8:30 and 2:00 to allow for dose to be given with other morning medications which includes her methadone dose. - Encourage phone meeting with fiyusef if willing - Encourage participation in groups, specifically with focus on managing anxiety. 10/27 - continue medications as prescribed as we are seeing tolerability of wellbutrin and some initial benefit - encouraged her to consider family meeting which she has declined - encouraged her to consider her need for control and how that may keep her from sharing with others out of fear that they will react in a way she has no control over (e.g. they will feel burdened) as well as the desire to defend against her emotions by focussing on the details of her medications to avoid her own emotions and thoughts She participates and notes she will consider these concepts (> 17min spent in supportive dynamic therapy on these topics) 10/28 - Continue meds and groups/therapy. - Now willing to consider family meeting with bryce. 10/29 Continue current medications - Fianc unwilling to commit for a family meeting.- (3) Generalized anxiety disorder 10/24 - Ordered current home medications of Klonopin 0.5mg BID and Vistaril 50mg BID scheduled for anxiety. Will assess level of anxiety while on the unit and determine if alteration of medication regimen is appropriate. 10/25 - Plan to decrease Klonopin to .25mg BID as it is not appropriate for patient to be on benzodiazepine and methadone. Will continue to taper Klonopin and adjust Vistaril or add alternative agent as needed once anxiety level has been assessed. Restarted Vistaril 25mg q4h prn which can be given between her prn BID Vistaril 50mg. - Call placed to pt's outpatient prescriber, Dr. Cruz at [facility] - for [place] office. Left message to discuss Klonopin taper as patient has been undergoing the process on an outpatient basis. Pt reports she has been on 0.5mg BID for the past 6 months. - Pt is aware that our recommendation is to taper Klonopin dose and eventually discontinue due to safety concerns with current involvement with the methadone clinic. She is resistant to the change but has respected that we are reaching out to her outpatient providers to provide collateral information. At this time, will order Klonopin 0.25mg BID to begin taper. Pt will not be provided with prescription upon discharge from the hospital and we hope to hear from her outpatient provider to assist with this process. 10/26 - Klonopin to be reduced to 0.25mg BID starting this morning. Pt aware that she has prn Vistaril available for anxiety. - Encouraged to focus on distraction techniques and ways she can better manage her anxiety to help augment medications. 10/27 - see above as from 10/26 and for depression/mood 10/26 and 10/27 10/28 - Continue lower dose of clonazepam 0.25mg bid. Recommend completion of taper as an outpatient. (4) Back pain 10/24 - Pt currently treated at methadone clinic. Current dose of 186mg liquid PO daily was verified with [facility] and dosing was ordered. Pt is also prescribed baclofen for chronic back and neck pain resulting from 7 spinal surgeries. Pt requested Tylenol and Advil prn for back pain and pain related to fibromyalgia as well. 10/26 - Baclofen was also ordered as 10mg TID rather than the 10mg qAM and 20mg qHS as listed in her med rec, per patient's request. Discharge / Aftercare Planning Primary Care Physician: Name: Lj/DALY Psychiatrist: Name: Linh Serrano PA-C, [facility] Date of Appointment: Nov 04, 2017 Time of Appointment: 2pm Therapist: Name: Anne-Marie/[employer] Planner: Name: None Visit Code E&M Code: 16999 Inventory Assets Strengths: willingness for treatment, supportive family, established outpatient providers Needs: mediate risk factors, education and processing of depressive and anxiety symptoms. Risk Factors Assessment : Yes /single/: Yes Higher / Fall in social status: No Access to guns: No Health problems: Yes Mental Health Diagnoses: Yes Substance use disorders: No Previous attempt: No Previous psychiatric stay: Yes Hopelessness: Yes Smoker: Yes Protective Factors Assessment Tenriism beliefs: Yes : No Responsible for young children: No Employed: No Stable relationships: Yes Supportive family: Yes Good rapport with provider: Yes Data Vital Signs Last 24 Hrs: Date Time Temp Pulse Resp B/P (MAP) Pulse Ox O2 Delivery O2 Flow Rate FiO2 10/29/17 06:57 36.7 80 16 110/73 92 114/77 Meds Administered Last 24 Hrs: Current Inpatient Medications Medications (Trade) Dose Ordered Sig/Raymond Route Start Time Stop Time Status Last Admin Dose Admin Acetaminophen (Tylenol Tab) 650 mg Q4H PRN PO 10/24/17 14:45 11/23/17 14:44 10/29/17 08:41 650 MG Al Hydroxide/Mg Hydroxide (Maalox Susp) 30 ml Q4H PRN PO 10/24/17 14:45 11/23/17 14:44 Magnesium Hydroxide (Milk Of Magnesia Susp) 30 ml DAILY PRN PO 10/24/17 14:45 11/23/17 14:44 Sodium Chloride (Tripp Nasal Royal) PRN PRN NA 10/24/17 14:45 11/23/17 14:44 10/25/17 07:34 1 SPRAYS Hydroxyzine HCl (Vistaril Tab) 50 mg HSZ PRN PO 10/24/17 14:45 11/23/17 14:44 10/27/17 22:03 50 MG Miscellaneous (Remove Nicoderm Patch) 1 ea HS N/A 10/24/17 22:00 11/23/17 21:59 Ibuprofen (Advil Tab) 400 mg TID PRN PO 10/24/17 18:15 11/23/17 18:14 10/28/17 22:15 400 MG Dicyclomine HCl (Bentyl Tab) 20 mg QID PO 10/24/17 18:30 11/23/17 18:29 10/29/17 08:34 20 MG Escitalopram Oxalate (Lexapro Tab) 20 mg QAM PO 10/25/17 09:00 11/24/17 08:59 10/29/17 08:35 20 MG Zolpidem Tartrate (Ambien Tab) 10 mg HS PO 10/24/17 22:00 11/23/17 21:59 10/28/17 21:11 10 MG Methadone HCl (Methadone HCl) 186 mg QAM PO 10/25/17 09:00 11/08/17 08:59 10/29/17 09:03 186 MG Non-Formulary Medication (Patient'S Own Controlled Med) 1 ea QAM PO 10/25/17 09:00 11/08/17 08:59 10/29/17 09:03 1 EA Nicotine Polacrilex (Nicorette 2MG Gum) Chew and "park" in cheek ... Q2H PRN MT 10/25/17 12:00 11/23/17 18:14 10/29/17 11:22 2 PIECE Fluticasone Propionate (Flonase Nasal Royal) 1-2 sprays in each nost... DAILY PRN FLAKITO 10/25/17 12:00 11/25/17 11:59 10/29/17 07:04 1 SPRAYS Nicotine (Nicoderm Cq 14MG Patch) 1 patch QAM TD 10/26/17 09:00 11/25/17 08:59 10/29/17 08:45 1 PATCH Guaifenesin (Mucinex Contr Rel Tab) 600 mg Q12 PRN PO 10/25/17 14:30 11/24/17 14:29 10/29/17 08:37 600 MG Clonazepam (Klonopin Tab) 0.25 mg BID PO 10/26/17 09:00 11/23/17 18:29 10/29/17 08:36 0.25 MG Prazosin HCl (Prazosin) 4 mg HS PO 10/25/17 22:00 11/23/17 21:59 10/28/17 21:12 4 MG Baclofen (Lioresal Tab) 10 mg TID PO 10/26/17 14:00 11/24/17 08:59 10/29/17 08:35 10 MG Bupropion HCl (Wellbutrin Tab) 100 mg BID@0900,1400 PO 10/26/17 14:00 11/25/17 13:59 10/29/17 08:35 100 MG Hydroxyzine HCl (Vistaril Tab) 50 mg Q4H PRN PO 10/27/17 11:15 11/23/17 18:29 10/28/17 16:20 50 MG Lab Results Last 24 Hrs: 10/24/17 11:27 Red Blood Count 3.71, Mean Corpuscular Volume 91.4, Mean Corpuscular Hemoglobin 31.5, Mean Corpuscular Hemoglobin Concent 34.5, Mean Platelet Volume 8.1, Neutrophils (%) (Auto) 67.3, Lymphocytes (%) (Auto) 26.3, Monocytes (%) (Auto) 5.9, Eosinophils (%) (Auto) 0.1, Basophils (%) (Auto) 0.2, Neutrophils # (Auto) 5.87, Lymphocytes # (Auto) 2.30, Monocytes # (Auto) 0.52, Eosinophils # (Auto) 0.01, Basophils # (Auto) 0.02 10/24/17 11:27 Test 10/24/17 11:20 10/24/17 11:27 Urine Color YELLOW Urine Appearance CLEAR (CLEAR) Urine pH 6.5 (4.5-7.5) Urine Specific Clay 1.011 (1.000-1.030) Urine Protein NEG (NEG) Urine Glucose (UA) NEG (NEG) Urine Ketones NEG (NEG) Urine Occult Blood TRACE (NEG) Urine Nitrite NEG (NEG) Urine Bilirubin NEG (NEG) Urine Urobilinogen NEG (NEG) Urine Leukocyte Esterase NEG (NEG) Urine WBC (Auto) 0 /hpf (0-5) Urine RBC (Auto) 0-4 /hpf (0-4) Urine Hyaline Casts (Auto) 0 /lpf (0-5) Urine Epithelial Cells (Auto) 10-20 /lpf (0-5) Urine Bacteria (Auto) NEG (NEG) Urine Opiates Screen NEG (NEG) Urine Methadone, Qualitative POS (NEG) Urine Methadone Metabolites 19926 NG/ML ([id number]=219) Urine Methadone Confirm [id number] NG/ML (ESVXEA=154) Urine Barbiturates NEG (NEG) Urine Phencyclidine (PCP) Level NEG (NEG) Ur Amphetamine/Methamphetamine NEG (NEG) MDMA (Ecstasy) Screen NEG (NEG) Urine Benzodiazepines Screen NEG (NEG) Urine Cocaine Metabolite NEG (NEG) Urine Marijuana (THC) NEG (NEG) White Blood Count 8.74 K/uL (4.8-10.8) Red Blood Count 3.71 M/uL (4.2-5.4) Hemoglobin 11.7 g/dL (12.0-16.0) Hematocrit 33.9 % (37-47) Mean Corpuscular Volume 91.4 fL (80-100) Mean Corpuscular Hemoglobin 31.5 pg (25-34) Mean Corpuscular Hemoglobin Concent 34.5 g/dl (32-36) Platelet Count 361 K/uL (130-400) Mean Platelet Volume 8.1 fL (7.4-10.4) Neutrophils (%) (Auto) 67.3 % Lymphocytes (%) (Auto) 26.3 % Monocytes (%) (Auto) 5.9 % Eosinophils (%) (Auto) 0.1 % Basophils (%) (Auto) 0.2 % Neutrophils # (Auto) 5.87 K/uL (1.4-6.5) Lymphocytes # (Auto) 2.30 K/uL (1.2-3.4) Monocytes # (Auto) 0.52 K/uL (0.11-0.59) Eosinophils # (Auto) 0.01 K/uL (0-0.5) Basophils # (Auto) 0.02 K/uL (0-0.2) RDW Standard Deviation 44.1 fL (36.4-46.3) RDW Coefficient of Variation 13.2 % (11.5-14.5) Immature Granulocyte % (Auto) 0.2 % Immature Granulocyte # (Auto) 0.02 K/uL (0.00-0.02) Anion Gap 5.0 mmol/L (3-11) Est Creatinine Clear Calc Drug Dose 84.6 ml/min Estimated GFR () 106.0 Estimated GFR (Non- 91.5 BUN/Creatinine Ratio 8.9 (10-20) Calcium Level 9.4 mg/dl (8.5-10.1) Total Bilirubin 0.2 mg/dl (0.2-1) Aspartate Amino Transf (AST/SGOT) 18 U/L (15-37) Alanine Aminotransferase (ALT/SGPT) 23 U/L (12-78) Alkaline Phosphatase 74 U/L (45-117) Total Protein 7.7 gm/dl (6.4-8.2) Albumin 4.0 gm/dl (3.4-5.0) Globulin 3.7 gm/dl (2.5-4.0) Albumin/Globulin Ratio 1.1 (0.9-2) Thyroid Stimulating Hormone (TSH) 0.790 uIu/ml (0.300-4.500) Salicylates Level 3.5 mg/dl (2.8-20) Acetaminophen Level < 2 ug/ml (10-30) Ethyl Alcohol mg/dL < 3.0 mg/dl (0-3)
[2017-10-29] MEDS: hydrOXYzine HCL 25 MG TAB PO PRN (15:52)
[2017-10-29] MEDS: IBUPROFEN 200 MG TAB PO PRN (16:13)
[2017-10-29] MEDS: ZOLPIDEM TARTRATE 10 MG TAB PO SCH (22:08)
[2017-10-29] MEDS: PRAZOSIN HCL 1 MG CAP PO SCH (22:11)
[2017-10-30 06:55] VITALS: BP_SYST 101; BP_SYST 105; BP_DIAS 64; BP_DIAS 67; PULSE 82; PULSE 92; TEMP 36.7
[2017-10-30] MEDS: NICOTINE POLACRILEX 2 MG GUM MT PRN ×6 (08:14→19:50)
[2017-10-30] MEDS: METHADONE ORAL SOLN 2 MG/1ML PO SCH (08:43)
[2017-10-30] MEDS: CLONAZEPAM 0.5 MG TAB PO SCH ×2 (08:44→21:17)
[2017-10-30] MEDS: DICYCLOMINE HCL 20 MG TAB PO SCH ×4 (08:45→21:16)
[2017-10-30] MEDS: BACLOFEN 10 MG TAB PO SCH ×3 (08:45→21:17)
[2017-10-30] MEDS: ESCITALOPRAM OXALATE 20 MG TAB PO SCH (08:45)
[2017-10-30] MEDS: NICOTINE 14 MG/24 HR TDSY TD SCH (08:46)
[2017-10-30] MEDS: FLUTICASONE PROPIONATE NA SPR 16 GM BTL NAE PRN (08:49)
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
[2017-10-30] MEDS: hydrOXYzine HCL 25 MG TAB PO PRN ×3 (13:25→21:19)
[2017-10-30] MEDS: IBUPROFEN 200 MG TAB PO PRN (14:11)
[2017-10-30] MEDS: GUAIFENESIN 600 MG TABCR PO PRN (14:11)
[2017-10-30] MEDS: ACETAMINOPHEN 325 MG TAB PO PRN (19:51)
[2017-10-30] MEDS: ZOLPIDEM TARTRATE 10 MG TAB PO SCH (21:15)
[2017-10-30] MEDS: PRAZOSIN HCL 1 MG CAP PO SCH (21:18)
[2017-10-31 06:54] VITALS: BP_SYST 109; BP_SYST 111; BP_DIAS 67; BP_DIAS 70; PULSE 81; PULSE 92; TEMP 37
[2017-10-31] MEDS: NICOTINE POLACRILEX 2 MG GUM MT PRN ×2 (08:12→11:15)
[2017-10-31] MEDS: CLONAZEPAM 0.5 MG TAB PO SCH (08:50)
[2017-10-31] MEDS: NICOTINE 14 MG/24 HR TDSY TD SCH (08:51)
[2017-10-31] MEDS: ESCITALOPRAM OXALATE 20 MG TAB PO SCH (08:51)
[2017-10-31] MEDS: BACLOFEN 10 MG TAB PO SCH (08:51)
[2017-10-31] MEDS: DICYCLOMINE HCL 20 MG TAB PO SCH (08:51)
[2017-10-31] MEDS: METHADONE ORAL SOLN 2 MG/1ML PO SCH (08:52)
[2017-10-31] MEDS ORDERED: CLON0.5T3 PO (09:25)
[2017-10-31] MEDS ORDERED: WLL100 PO (09:25)
[2017-10-31] MEDS ORDERED: BACL10TA PO (09:25)
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
[2017-10-31] MEDS: GUAIFENESIN 600 MG TABCR PO PRN (11:41)
[2017-10-31] MEDS: FLUTICASONE PROPIONATE NA SPR 16 GM BTL NAE PRN (11:42)
== END 2017-10-31 12:35 | disposition home or self-care (01) | DRG 885 ==
LOC: C.EDB 10:22 → C.MHU 14:03
PROVIDERS: ADMIT Psychiatry & Neurology Child & Adolescent Psychiatry; ATTEND Psychiatry & Neurology Child & Adolescent Psychiatry
DX: F33.2 Major depressive disorder, recurrent severe without psychotic features (principal); R45.851 Suicidal ideations; R03.0 Elevated blood-pressure reading, without diagnosis of hypertension; F41.1 Generalized anxiety disorder; G89.29 Other chronic pain; M54.9 Dorsalgia, unspecified; M79.7 Fibromyalgia; K58.9 Irritable bowel syndrome, unspecified; F17.210 Nicotine dependence, cigarettes, uncomplicated; Z79.899 Other long term (current) drug therapy; Z79.891 Long term (current) use of opiate analgesic; Z91.410 Personal history of adult physical and sexual abuse; Z83.3 Family history of diabetes mellitus; Z83.49 Family history of other endocrine, nutritional and metabolic diseases; Z81.1 Family history of alcohol abuse and dependence

== ENCOUNTER 2017-11-24 09:32 | Emergency (ER) | payer OTHER ==
[~2017-11-24] VITALS: Ht 157.5 cm; Wt 78.7 kg
[~2017-11-24 09:32] MED LIST changes: +BACL10TA PO; -BACL1TAB PO; -ESCI1TAB10 PO; +METHADONE LIQUID PO; -PRAZ1CAP10 PO; +WLL100 PO; -ZOLP10TA PO
[2017-11-24 09:36] VITALS: TEMP 37; Ht 157.5 cm; Wt 78.7 kg
--- NOTE | 2017-11-24 09:57 | EMERGENCY ROOM VISIT NOTE ---
History Report prepared by Fidelina: Geneva Menjivar Under the Supervision of: Dr. Sean Sawyer M.D. First contact with patient: 09:48 Chief Complaint: ANXIETY Stated Complaint: SEVERE ANXIETY,PANIC ATTACKS History of Present Illness The patient is a 52 year old female who presents to the Emergency Room with complaints of worsening anxiety. She states she has been having worsening panic attacks since . She admits to a history of anxiety and is on Lexapro, Hydroxyzine and Klonopin without relief. She believes she needs her Hydroxyzine increased to 50 mg twice a day. She cannot see her Doctor until next week and states she is currently out of the Hydroxyzine. The patient denies any SI or HI. She denies any abdominal pain. She admits to back pain but states it is chronic for her. She is out of her Baclofen and notes it is not arriving until early this week. Source of History: patient Onset: since Position: other (global) Timing: worsening Associated Symptoms: + back pain, No abdominal pain Review of Systems See HPI for pertinent positives & negatives. A total of 10 systems reviewed and were otherwise negative. Past Medical & Surgical Medical Problems: (1) Anxiety (2) Back pain (3) Depression (4) Fibromyalgia (5) Generalized anxiety disorder (6) IBS (irritable bowel syndrome) (7) Major depressive disorder, recurrent severe without psychotic features Family History Diabetes mellitus MOTHER Hyperlipidemia Social History Smoking Status: Never Smoker Alcohol Use: none Drug Use: none Marital Status: , in relationship Housing Status: lives with significant other Occupation Status: disabled Current/Historical Medications Scheduled Acetaminophen (Tylenol), 1,000 MG PO UD Bupropion (Wellbutrin), 100 MG PO BID Clonazepam (Klonopin), 0.5 TAB PO BID Dicyclomine Hcl (Dicyclomine Hcl), 1 TAB PO QID Escitalopram Oxalate (Lexapro), 20 MG PO QAM Melatonin (Kp Melatonin), 3 TAB PO HS Prazosin Hcl (Prazosin), 4 MG PO HS [Methadone Liquid], 186 MG PO QAM Scheduled PRN Baclofen (Lioresal), 10 MG PO TID PRN for Muscle Spasms Hydroxyzine Pamoate (Vistaril), 1 CAP PO TID PRN for Itching Allergies Coded Allergies: Celecoxib (Unverified Allergy, Unknown, RASH, 2/18/18) Gabapentin (Unverified Allergy, Unknown, DIZZINESS, 11/24/17) Sulfa Antibiotics (Unverified Allergy, Unknown, HIVES, 11/24/17) Sumatriptan (Unverified Allergy, Unknown, THROAT CLOSES, 11/24/17) Physical Exam Vital Signs Date Time Temp Pulse Resp B/P (MAP) Pulse Ox O2 Delivery O2 Flow Rate FiO2 11/24/17 10:45 81 17 117/74 97 Room Air 11/24/17 09:36 37.0 90 18 119/81 97 Room Air Physical Exam GENERAL: Patient is anxious appearing and in minimal distress. HEENT: No acute trauma, normocephalic atraumatic, mucous membranes moist, no nasal congestion, no scleral icterus. NECK: No stridor, no adenopathy, no meningismus, trachea is midline. LUNGS: No dyspnea. Clear to auscultation and equal bilaterally. No wheeze, no rhonchi. HEART: Regular rate and rhythm. No murmurs, rubs, gallops appreciated. ABDOMEN: Soft, nontender, bowel sounds positive, no masses appreciated, no peritonitis. BACK: No midline tenderness, no CVA tenderness EXTREMITIES: Normal motion all extremities, no cyanosis, no edema. NEUROLOGIC: Alert and oriented, no acute motor or sensory deficits, no focal weakness, cranial nerves grossly intact. SKIN: No rash, no jaundice, no diaphoresis. PSYCH: The patient admits to anxiety, denies any SI or HI and denies the need for a psych eval. Medical Decision & Procedures Medications Administered Medications (Trade) Dose Ordered Sig/Raymond Route Start Time Stop Time Status Last Admin Dose Admin Hydroxyzine HCl (Vistaril Tab) 50 mg NOW STAT PO 11/24/17 09:58 11/24/17 10:00 DC 11/24/17 10:05 50 MG Baclofen (Lioresal Tab) 10 mg NOW STAT PO 11/24/17 09:58 11/24/17 10:00 DC 11/24/17 10:45 10 MG ED Course 0953: The patient was evaluated in room A4. A complete history and physical exam was performed. 0958: Baclofen 10 mg PO, Vistaril Tab 50 mg PO. 1015: I reevaluated the patient. She is feeling well and is ready to go home. I discussed her results and discharge instructions and she verbalized complete understanding and agreement. Medical Decision Differential: Mood Disorder, Overdose, Infectious, Electrolyte Abnormality, Cardiac, Hepatic, Endocrine, Medication refill, Toxicologic, Neurologic, amongst other pathologies entertained. 52 yr old female with mood and anxiety disorder who has run out of her vistaril which she has been taking TID rather than BID. No evidence that she is significantly anticholinergic from this thus I will give her further Rx for it. Requesting Baclofen Rx though I explained this would be inappropriate given she admits she will have it in mail in next 1-2 days and has been off it last few days. No suicidal/homicidal ideation. She is not a risk to herself. She is stable and breathing well. She does not feel she needs to be admitted. Medication Reconcilliation Current Medication List: was personally reviewed by me Blood Pressure Screening Patient's blood pressure: Normal blood pressure Blood pressure disposition: Did not require urgent referral Impression Primary Impression: Generalized anxiety disorder Additional Impressions: Panic attacks Medication refill Scribe Attestation The scribe's documentation has been prepared under my direction and personally reviewed by me in its entirety. I confirm that the note above accurately reflects all work, treatment, procedures, and medical decision making performed by me. Departure Information Dispostion Home / Self-Care Referrals No Doctor, Assigned (PCP) Patient Instructions My [facility] Additional Instructions We are always here to help. Call 911 or return if you have thoughts of harm to yourself or others. Take all medications cautiously as these can cause sedation. Decrease or stop medications if increasing dry mouth, palpitations, anxiety, or other adverse effects. Problem Qualifiers
[2017-11-24] MEDS ORDERED: hydrOXYzine HCL 25 MG TAB PO STA (09:58)
[2017-11-24] MEDS ORDERED: BACLOFEN 10 MG TAB PO STA (09:58)
[2017-11-24] MEDS ORDERED: HYDR50CA2 PO (10:01)
[2017-11-24 10:45] VITALS: BP 117/74; PULSE 81; O2SAT 97
[2017-11-25] MEDS ORDERED: DICY20TA10 PO (10:11)
[2017-11-25] MEDS ORDERED: BUPR-83 PO (10:13)
[2017-11-25] MEDS ORDERED: HYDR50CA2 PO (10:13)
[2017-11-25] MEDS ORDERED: CLON0.5T3 PO (10:13)
[2017-11-25] MEDS ORDERED: BACL10TA PO (10:13)
[2017-11-25] MEDS ORDERED: ESCI1TAB10 PO (10:23)
[2017-11-25] MEDS ORDERED: MELA1TAB5 PO (11:43)
[2017-11-25] MEDS ORDERED: ACET-1256 PO (11:45)
[2017-11-25] MEDS ORDERED: PRAZ2CAP3 PO (13:37)
[2017-11-25] MEDS ORDERED: METH10CO PO (13:44)
[2017-11-25] MEDS ORDERED: ZOLP10TA PO (13:44)
== END 2017-11-24 10:49 | disposition home or self-care (01) ==
LOC: C.EDB 09:34 → C.EDA 10:49
DX: F41.0 Panic disorder [episodic paroxysmal anxiety] (principal); F32.9 Major depressive disorder, single episode, unspecified; M54.9 Dorsalgia, unspecified; G89.29 Other chronic pain; Z88.8 Allergy status to other drugs, medicaments and biological substances; Z88.6 Allergy status to analgesic agent; Z88.2 Allergy status to sulfonamides; Z83.3 Family history of diabetes mellitus; Z83.49 Family history of other endocrine, nutritional and metabolic diseases

== ENCOUNTER 2017-11-25 12:05 | Emergency (ER) | payer OTHER ==
[~2017-11-25] VITALS: Ht 157.5 cm; Wt 78.0 kg
[~2017-11-25 12:05] MED LIST changes: +ACET-1256 PO; +BUPR-83 PO; +DICY20TA10 PO; -DICY20TA35 PO; +ESCI1TAB10 PO; +MELA1TAB5 PO; -WLL100 PO
[2017-11-25 12:07] VITALS: TEMP 36.8; Ht 157.5 cm; Wt 78.0 kg
[2017-11-25 13:13] LABS: BASO % 0.2 %; BASO ABS # 0.02 K/uL (0-0.2); EOS % 0.8 %; EOS ABS # 0.07 K/uL (0-0.5); HEMATOCRIT 36.3 % (37-47); HEMOGLOBIN 12.8 g/dL (12.0-16.0); IG# 0.03 K/uL (0.00-0.02); LYMPH % 35.3 %; LYMPH ABS # 2.97 K/uL (1.2-3.4); MEAN CELL VOLUME 90.8 fL (80-100); MEAN CORPUSCULAR HGB CONC 35.3 g/dl (32-36); MEAN PLATELET VOLUME 8.2 fL (7.4-10.4); MONO % 6.8 %; MONO ABS # 0.57 K/uL (0.11-0.59); NEUT % 56.5 %; NEUT ABS # 4.76 K/uL (1.4-6.5); PLATELET COUNT 307 K/uL (130-400); RED CELL DISTRIBUTION WIDTH SD 42.8 fL (36.4-46.3); WHITE BLOOD COUNT 8.42 K/uL (4.8-10.8)
[2017-11-25 13:33] LABS: ALT/SGPT 25 U/L (12-78); BLOOD UREA NITROGEN 11 mg/dl (7-18); CALCIUM 9.1 mg/dl (8.5-10.1); CARBON DIOXIDE 25 mmol/L (21-32); CREATININE 0.84 mg/dl (0.60-1.20); GLUCOSE 93 mg/dl (70-99); POTASSIUM 3.7 mmol/L (3.5-5.1); SODIUM 134 mmol/L (136-145)
[2017-11-25] MEDS ORDERED: PRAZ2CAP3 PO (13:37)
[2017-11-25 13:44] LABS: ALKALINE PHOSPHATASE 61 U/L (45-117); AST/SGOT 19 U/L (15-37); TOTAL PROTEIN 7.3 gm/dl (6.4-8.2)
[2017-11-25] MEDS ORDERED: ZOLP10TA PO (13:44)
[2017-11-25] MEDS ORDERED: METH10CO PO (13:44)
[2017-11-25] MEDS ORDERED: LORAZEPAM 0.5 MG TAB SL STA (14:47)
[2017-11-25] MEDS ORDERED: IBUPROFEN 600 MG TAB PO STA (14:47)
--- NOTE | 2017-11-25 15:48 | EMERGENCY ROOM VISIT NOTE ---
History Report prepared by Fidelina: Gaurav Bashir Under the Supervision of: Dr. Kameron Watson D.O. First contact with patient: 12:15 Chief Complaint: MENTAL HEALTH EVALUATION Stated Complaint: DEPRESSION AND ANXIETY-WORSENING History of Present Illness The patient is a 52 year old female who presents to the Emergency Room for a mental health evaluation. She has a past medical history of chronic back pain and depression. She is taking Lexapro. Over the past week, the patient has been experiencing thoughts of wanting to kill herself with a plan of carbon monoxide poisoning. The patient has had suicidal thoughts in the past, but is normally able to work through them and redirect her thoughts. However, over the past week , she has been unable to redirect them. Because of this, she has been unable to eat or sleep regularly. She then decided to come to hospital voluntarily to request assistance. Pt denies headache, change in vision, fevers, chest pain, shortness of breath, nausea, vomiting, diarrhea, pain with urination, and melena. She has never attempted suicide before. Source of History: patient Onset: 1 week ago Position: other (Mental Health) Symptom Intensity: moderate Quality: other (Suicidal ideation) Timing: constant Associated Symptoms: No fevers, No headache, No chest pain, No SOB, No nausea, No vomiting, No melena, No diarrhea, No urinary symptoms Note: She has a suicidal ideation with a plan through CO poisoning. Review of Systems See HPI for pertinent positives & negatives. A total of 10 systems reviewed and were otherwise negative. Past Medical & Surgical Medical Problems: (1) Anxiety (2) Back pain (3) Depression (4) Fibromyalgia (5) Generalized anxiety disorder (6) IBS (irritable bowel syndrome) (7) Major depressive disorder, recurrent severe without psychotic features Family History Diabetes mellitus MOTHER Hyperlipidemia Social History Smoking Status: Never Smoker Alcohol Use: none Drug Use: none Marital Status: , in relationship Housing Status: lives with significant other Occupation Status: disabled Current/Historical Medications Scheduled Acetaminophen (Tylenol), 1,000 MG PO UD Bupropion (Wellbutrin), 100 MG PO BID Clonazepam (Klonopin), 0.5 TAB PO BID Dicyclomine Hcl (Dicyclomine Hcl), 1 TAB PO QID Escitalopram Oxalate (Lexapro), 20 MG PO QAM Melatonin (Kp Melatonin), 3 TAB PO HS Methadone Hcl (Methadone Hcl Intensol), 191 MG PO DAILY Prazosin Hcl (Prazosin), 4 MG PO HS Zolpidem Tartrate (Ambien), 10 MG PO HS Scheduled PRN Baclofen (Lioresal), 10 MG PO TID PRN for Muscle Spasms Hydroxyzine Pamoate (Vistaril), 1 CAP PO TID PRN for Itching Allergies Coded Allergies: Celecoxib (Unverified Allergy, Unknown, RASH, 11/25/17) Gabapentin (Unverified Allergy, Unknown, DIZZINESS, 11/25/17) Sulfa Antibiotics (Unverified Allergy, Unknown, HIVES, 11/25/17) Sumatriptan (Unverified Allergy, Unknown, THROAT CLOSES, 11/25/17) Physical Exam Vital Signs Date Time Temp Pulse Resp B/P (MAP) Pulse Ox O2 Delivery O2 Flow Rate FiO2 11/25/17 14:06 88 20 126/72 98 Room Air 11/25/17 12:07 36.8 90 20 137/71 98 Physical Exam GENERAL: Sitting up in bed, alert, well appearing, well nourished, no distress, non-toxic EYE EXAM: normal conjunctiva. OROPHARYNX: no exudate, no erythema, lips, buccal mucosa, and tongue normal and mucous membranes are moist NECK: supple, no nuchal rigidity, no adenopathy, non-tender LUNGS: Clear to auscultation. Normal chest wall mechanics HEART: no murmurs, S1 normal and S2 normal ABDOMEN: abdomen soft, non-tender, normo-active bowel sounds, no masses, no rebound or guarding. BACK: Back is symmetrical on inspection and there is no deformity, no midline tenderness, no CVA tenderness. SKIN: no rashes and no bruising UPPER EXTREMITIES: upper extremities are grossly normal. LOWER EXTREMITIES: No pitting edema. NEURO EXAM: Normal sensorium, cranial nerves II-XII grossly intact, normal speech, no gross weakness of arms, no gross weakness of legs. PSYCH EXAM: Admits to suicidal ideation with a plan through carbon monoxide. Medical Decision & Procedures Laboratory Results 11/25/17 12:48 Red Blood Count 4.00, Mean Corpuscular Volume 90.8, Mean Corpuscular Hemoglobin 32.0, Mean Corpuscular Hemoglobin Concent 35.3, Mean Platelet Volume 8.2, Neutrophils (%) (Auto) 56.5, Lymphocytes (%) (Auto) 35.3, Monocytes (%) (Auto) 6.8, Eosinophils (%) (Auto) 0.8, Basophils (%) (Auto) 0.2, Neutrophils # (Auto) 4.76, Lymphocytes # (Auto) 2.97, Monocytes # (Auto) 0.57, Eosinophils # (Auto) 0.07, Basophils # (Auto) 0.02 11/25/17 12:48 Test 11/25/17 12:48 11/25/17 13:15 White Blood Count 8.42 K/uL (4.8-10.8) Red Blood Count 4.00 M/uL (4.2-5.4) Hemoglobin 12.8 g/dL (12.0-16.0) Hematocrit 36.3 % (37-47) Mean Corpuscular Volume 90.8 fL (80-100) Mean Corpuscular Hemoglobin 32.0 pg (25-34) Mean Corpuscular Hemoglobin Concent 35.3 g/dl (32-36) Platelet Count 307 K/uL (130-400) Mean Platelet Volume 8.2 fL (7.4-10.4) Neutrophils (%) (Auto) 56.5 % Lymphocytes (%) (Auto) 35.3 % Monocytes (%) (Auto) 6.8 % Eosinophils (%) (Auto) 0.8 % Basophils (%) (Auto) 0.2 % Neutrophils # (Auto) 4.76 K/uL (1.4-6.5) Lymphocytes # (Auto) 2.97 K/uL (1.2-3.4) Monocytes # (Auto) 0.57 K/uL (0.11-0.59) Eosinophils # (Auto) 0.07 K/uL (0-0.5) Basophils # (Auto) 0.02 K/uL (0-0.2) RDW Standard Deviation 42.8 fL (36.4-46.3) RDW Coefficient of Variation 13.0 % (11.5-14.5) Immature Granulocyte % (Auto) 0.4 % Immature Granulocyte # (Auto) 0.03 K/uL (0.00-0.02) Anion Gap 11.0 mmol/L (3-11) Est Creatinine Clear Calc Drug Dose 77.5 ml/min Estimated GFR () 93.9 Estimated GFR (Non- 81.0 BUN/Creatinine Ratio 13.4 (10-20) Calcium Level 9.1 mg/dl (8.5-10.1) Total Bilirubin 0.3 mg/dl (0.2-1) Direct Bilirubin < 0.1 mg/dl (0-0.2) Aspartate Amino Transf (AST/SGOT) 19 U/L (15-37) Alanine Aminotransferase (ALT/SGPT) 25 U/L (12-78) Alkaline Phosphatase 61 U/L (45-117) Total Protein 7.3 gm/dl (6.4-8.2) Albumin 4.0 gm/dl (3.4-5.0) Thyroid Stimulating Hormone (TSH) 1.730 uIu/ml (0.300-4.500) Ethyl Alcohol mg/dL < 3.0 mg/dl (0-3) Urine Color YELLOW Urine Appearance CLEAR (CLEAR) Urine pH 5.5 (4.5-7.5) Urine Specific [place] 1.006 (1.000-1.030) Urine Protein NEG (NEG) Urine Glucose (UA) NEG (NEG) Urine Ketones NEG (NEG) Urine Occult Blood NEG (NEG) Urine Nitrite NEG (NEG) Urine Bilirubin NEG (NEG) Urine Urobilinogen NEG (NEG) Urine Leukocyte Esterase NEG (NEG) Urine Opiates Screen NEG (NEG) Urine Methadone, Qualitative POS (NEG) Urine Barbiturates NEG (NEG) Urine Phencyclidine (PCP) Level NEG (NEG) Ur Amphetamine/Methamphetamine NEG (NEG) MDMA (Ecstasy) Screen NEG (NEG) Urine Benzodiazepines Screen NEG (NEG) Urine Cocaine Metabolite NEG (NEG) Urine Marijuana (THC) NEG (NEG) Laboratory results per my review. Medications Administered Medications (Trade) Dose Ordered Sig/Raymond Route Start Time Stop Time Status Last Admin Dose Admin Ibuprofen (Motrin Tab) 600 mg NOW STAT PO 11/25/17 14:47 11/25/17 14:48 DC 11/25/17 14:47 600 MG Lorazepam (Ativan Tab) 0.5 mg NOW STAT SL 11/25/17 14:47 11/25/17 14:48 DC 11/25/17 14:47 0.5 MG ED Course ED COURSE: Vital signs were reviewed and showed normal vitals The patients medical record was reviewed The above diagnostic studies were performed and reviewed. ED treatments and interventions as stated above. 1215: The patient was evaluated in room C8. A complete history and physical examination was performed. 1420: The patient is now medically cleared. 1447: Ordered Ativan Tab 0.5 mg SL, Motrin Tab 600 mg PO 1500: Upon reevaluation, the patient is resting. She was signed out to Dr. Crane at the change in shifts. Medical Decision Differential diagnosis: Etiologies such as mood disorder, infection, hypoglycemia, electrolyte abnormalities, cardiac sources, intracerebral event, toxicologic, neurologic, as well as others were entertained. Patient is a 52-year-old female who presents to the ER with suicidal thoughts and depression. She notes her suicidal thoughts have been worsening over the course of the past week. She has been unable to sleep and has not been eating. She currently has a plan to kill herself with carbon monoxide. This is been present over the past week. She clearly states that she does not trust herself at home and believes that she will likely harm herself. She is agreeable on a 201. CBC along with BMP, LFTs, bilirubin TSH was unremarkable. Tox was positive for methadone. Alcohol was negative. UA was negative. Patient was signed out to Dr. crane awaiting placement for suicidal ideations with a clear plan. Medication Reconcilliation Current Medication List: was personally reviewed by me Blood Pressure Screening Patient's blood pressure: Normal blood pressure Blood pressure disposition: Did not require urgent referral Impression Primary Impression: Suicidal ideation Scribe Attestation The scribe's documentation has been prepared under my direction and personally reviewed by me in its entirety. I confirm that the note above accurately reflects all work, treatment, procedures, and medical decision making performed by me. Departure Information Dispostion Still a Patient Referrals No Doctor, Assigned (PCP) Patient Instructions My [facility]
[2017-11-25] MEDS ORDERED: BACLOFEN 10 MG TAB PO STA ×2 (17:30→21:14)
[2017-11-25] MEDS ORDERED: BACLOFEN 10 MG TAB PO SCH (17:30)
[2017-11-25] MEDS ORDERED: CLONAZEPAM 0.5 MG TAB PO STA (21:14)
[2017-11-25 22:37] VITALS: BP 112/70; PULSE 80; O2SAT 99
== END 2017-11-25 22:38 ==
LOC: C.EDB 12:06 → C.EDA 22:38
DX: R45.851 Suicidal ideations (principal); F32.9 Major depressive disorder, single episode, unspecified; F41.1 Generalized anxiety disorder; M54.9 Dorsalgia, unspecified; G89.29 Other chronic pain; M79.7 Fibromyalgia; K58.9 Irritable bowel syndrome, unspecified; Z83.3 Family history of diabetes mellitus; Z82.49 Family history of ischemic heart disease and other diseases of the circulatory system

== ENCOUNTER 2017-12-23 14:20 | Emergency (ER) | payer OTHER ==
[~2017-12-23] VITALS: Ht 157.5 cm; Wt 79.0 kg
[~2017-12-23 14:20] MED LIST changes: +METH10CO PO; -METHADONE LIQUID PO; +PRAZ2CAP3 PO; +ZOLP10TA PO
[2017-12-23 14:29] VITALS: TEMP 37.3; Ht 157.5 cm; Wt 79.0 kg
[2017-12-23] MEDS ORDERED: IRON5TAB PO (15:08)
[2017-12-23] MEDS ORDERED: CYAN500T13 PO (15:08)
[2017-12-23] MEDS ORDERED: ERGO500037 PO (15:08)
[2017-12-23] MEDS ORDERED: MELA3TAB PO (15:08)
[2017-12-23] MEDS ORDERED: BUSP-8 PO (15:08)
[2017-12-23] MEDS ORDERED: DICY20TA10 PO (15:11)
[2017-12-23] MEDS ORDERED: BACL1TAB PO (15:11)
--- NOTE | 2017-12-23 15:11 | EMERGENCY ROOM VISIT NOTE ---
ED Visit Note First contact with patient: 14:42 CHIEF COMPLAINT: Medication refill HISTORY OF PRESENT ILLNESS: This 52-year-old female patient presents to the emergency department, ambulatory, complaining of increased low back pain and muscle spasms. She states she has not been able to take her medications, she was late on calling to get them refilled. She states she did not contact her PCP for refills. She does have both prescriptions being sent by mail order to her home, and states they should be present later this week. She states she has not been taking her baclofen or dicyclomine since the fourth of this month. She believes she is having withdrawal symptoms, as she has been feeling panic attacks, sweating, and rhinorrhea. The patient denies any chest pain, difficulty breathing, new injury, abdominal pain, or other concerning symptoms. REVIEW OF SYSTEMS: A 6 system review of systems was performed with positives and pertinent negatives listed in the history of present illness. All other systems were reviewed and are negative. ALLERGIES: Imitrex, gabapentin, Celebrex, sulfa MEDICATIONS: Lexapro, melatonin, Tylenol, prazosin, dicyclomine, baclofen, Wellbutrin, clonazepam, Vistaril, methadone, Ambien PMH: Anxiety, muscle spasms, chronic back pain, bowel spasms SOCIAL HISTORY: The patient lives locally with family. She denies drug, alcohol , tobacco use. PHYSICAL EXAM: VITALS: Vitals are noted on the nurse's note and reviewed by myself. Vital signs stable. GENERAL: This is a 52-year-old white female, in no acute distress, nondiaphoretic, well-developed well-nourished. SKIN: The skin was without rashes, erythema, edema, or bruising. There is no tenting of the skin. Capillary reflex less than 2 seconds. HEAD: Normocephalic atraumatic. EARS: External auditory canals clear, tympanic membranes pearly stephenson without erythema or effusion bilaterally. EYES: Pupils equal round and reactive to light and accommodation. Conjunctivae without injection, sclerae without icterus. Extraocular movements intact. NOSE: Patent, turbinates without inflammation or discharge. No sinus tenderness. MOUTH: Mucous membranes moist. Tonsils are not enlarged. Pharynx without erythema or exudate. Uvula midline. Airway patent. Tongue does not deviate. NECK: Supple without nuchal rigidity. No lymphadenopathy. No thyromegaly. Cervical spine is nontender. No JVD. HEART: Regular rate and rhythm without murmurs gallops or rubs. LUNGS: Clear to auscultation bilaterally without wheezes, rales or rhonchi. No dullness to percussion. No retractions or accessory muscle use. MUSCULOSKELETAL: No muscle atrophy, erythema, or edema noted. Full range of motion without joint tenderness in all extremities. No tenderness to palpation. Normal gait. Strength 5/5 throughout. NEURO: Patient was alert and oriented to person place and time. Normal sensation to light and sharp touch. Deep tendon reflexes 2+ throughout. No focal neurological deficits. EMERGENCY DEPARTMENT COURSE: The patient was seen and evaluated as above. She presents emergency department today complaining of flareup of chronic low back pain and bowel spasms associated with not taking her medications. The patient [facility] , and has been without them for approximately 15 days. The patient presents to the emergency department today for short-term refill of the medications, she does have the medications en route in the mail. The patient will be given 3 day prescriptions for her chronic baclofen and dicyclomine, and I did discuss with her that she will need to follow-up with her PCP for ongoing prescriptions of the medications. The patient was agreeable. Prescriptions are sent to the pharmacy. Discharge instructions reviewed, the patient was discharged home in good condition. I attest that I have personally reviewed the patient's current medication list. Patient was found to have normal blood pressure on screening and does not require follow-up. Differential diagnosis includes back injury, spasms, gastrointestinal, [employer], , medication refill, and others DIAGNOSIS: Medication refill, chronic low back pain, bowel spasms Problem List Medical Problems: (1) Anxiety Status: Chronic (2) Back pain Status: Chronic (3) Depression Status: Chronic (4) Generalized anxiety disorder Status: Chronic (5) IBS (irritable bowel syndrome) Status: Chronic (6) Major depressive disorder, recurrent severe without psychotic features Status: Chronic Current/Historical Medications Scheduled Baclofen (Lioresal), 10 MG PO TID Baclofen (Lioresal), 10 MG PO TID Buspirone Hcl (Buspirone Hcl), 20 MG PO TID Cyanocobalamin (Vitamin B12 500MCG), 500 MCG PO DAILY Dicyclomine Hcl (Dicyclomine Hcl), 120 MG PO QID Dicyclomine Hcl (Dicyclomine Hcl), 1 TAB PO QID Ergocalciferol (Vitamin D 04680 Unit), 50,000 INTER.UNIT PO WK Escitalopram Oxalate (Lexapro), 20 MG PO QAM Iron-Vitamin C (Iron 100/C), 1 TAB PO DAILY Melatonin (Melatonin), 3 MG PO HS Methadone Hcl (Methadone Hcl Intensol), 191 MG PO DAILY Prazosin Hcl (Prazosin), 4 MG PO HS Zolpidem Tartrate (Ambien), 5 MG PO HS Scheduled PRN Acetaminophen (Tylenol), 1,000 MG PO Q6H PRN for Pain Hydroxyzine Pamoate (Vistaril), 150 MG PO TID PRN for Anxiety Allergies Coded Allergies: Celecoxib (Unverified Allergy, Unknown, RASH, 11/25/17) Gabapentin (Unverified Allergy, Unknown, DIZZINESS, 11/25/17) Sulfa Antibiotics (Unverified Allergy, Unknown, HIVES, 11/25/17) Sumatriptan (Unverified Allergy, Unknown, THROAT CLOSES, 11/25/17) Vital Signs Date Time Temp Pulse Resp B/P (MAP) Pulse Ox O2 Delivery O2 Flow Rate FiO2 12/23/17 14:29 37.3 95 16 164/85 99 Room Air Departure Information Impression Primary Impression: Medication refill Additional Impressions: Chronic low back pain Spasm of bowel Dispostion Home / Self-Care Condition GOOD Prescriptions Dicyclomine Hcl (DICYCLOMINE HCL) 20 Mg Tab 1 TAB PO QID for 3 Days, #12 TAB Prov: Lindsey Madera PA-C 12/23/17 Baclofen (LIORESAL) 10 Mg Tab 10 MG PO TID for 3 Days, #9 TAB Prov: Lindsey Madera PA-C 12/23/17 Referrals No Doctor, Assigned (PCP) Diane Raman M.D. Patient Instructions ED Neck Back Pain General, [facility] Additional Instructions You were seen in the emergency department today for medication refill. You were given a short course of medications until we receive your prescriptions in the mail. Please see prescriptions as prescribed. Please contact her primary care provider for any further refills needed. Problem Qualifiers Additional Impressions: Chronic low back pain Back pain laterality: bilateral Sciatica presence: without sciatica Qualified Codes: M54.5 - Low back pain; G89.29 - Other chronic pain
[2017-12-23 15:19] VITALS: BP 142/70; PULSE 89; O2SAT 97
== END 2017-12-23 15:12 | disposition home or self-care (01) ==
LOC: C.EDB 14:22 → C.EDD 15:12
DX: M54.5 Low back pain (principal); G89.29 Other chronic pain; K58.9 Irritable bowel syndrome, unspecified; F41.9 Anxiety disorder, unspecified; F33.2 Major depressive disorder, recurrent severe without psychotic features; M62.838 Other muscle spasm; Z88.2 Allergy status to sulfonamides; Z88.6 Allergy status to analgesic agent; Z88.8 Allergy status to other drugs, medicaments and biological substances

== ENCOUNTER 2024-04-30 05:10 | Inpatient (IN) ==
--- NOTE | 2024-04-30 05:34 | Emergency Department Note ---
Impression & Plan Anxiety ED Provider Note NAME: CESIA Joshua STATES AGE: 58 SEX: F : 1965 ARRIVES VIA: Walk-In INFORMANT: [Patient] ED PROVIDER(S): [Tremaine Lee MD] CHIEF COMPLAINT: Mental health evaluation HISTORY OF PRESENT ILLNESS: The patient is a 58-year-old female with a history of depression, anxiety and posttraumatic stress disorder. The patient states that 2 weeks ago, she talked with her psychiatrist and he advised taking some Vistaril during the day as well as at night. She states that she has been doing this without really any improvement in her anxiety. She is also using clonazepam 3 times a day without relief. In the last 3 days, the patient cannot sleep, she cannot eat. Her appetite has been diminished. The patient denies being suicidal, she is taking her medications as prescribed. The patient feels that she would benefit from inpatient psychiatric care. She knows herself well and she states that she is at the point where she needs inpatient before things get too severe. Patient was inpatient several years ago at the [facility]. The patient does not have other complaints at the present time. She is a voluntary. There is no 302 petitioning paperwork against her. The patient states that her dog about a month ago, this may be a stressor. She has a new dog now. She denies any financial or family issues that would be stressors. She lives with her . PMHx/PSHx/Social Hx: See Below PHYSICAL EXAM: GENERAL: Patient is in no acute distress. HEENT: No acute trauma, normocephalic atraumatic, mucous membranes moist, no nasal congestion. NECK: No stridor, no adenopathy, no meningismus, trachea is midline. LUNGS: Clear to auscultation bilaterally, no wheeze, no rhonchi, breath sounds equal. HEART: Without murmurs gallops or rubs, regular rate and rhythm. ABDOMEN: Soft, nontender, no peritonitis. EXTREMITIES: No cyanosis, full range of motion of all the joints without pain or difficulty. NEUROLOGIC: Oriented x 3, no acute motor or sensory deficits, no focal weakness. SKIN: No jaundice, no diaphoresis. Psychiatric: Cooperative, voluntary, denies being suicidal. Admits to anxiety and the inability to sleep or eat. DIFFERENTIAL DIAGNOSIS: Psychosis, medication noncompliance, drug or alcohol abuse, suicidality, thyroid disorder, among others. EMERGENCY DEPARTMENT PROCEDURES: MEDICAL DECISION MAKING: There is no leukocytosis or worrisome anemia. There is a normal platelet count. Urinalysis does not show findings of infection. Aspirin, Tylenol and alcohol levels were undetectable. COVID test returned negative. Urine tox showed potential ecstasy as well as methadone. There was no renal failure or significant electrolyte abnormality. No concerning liver enzyme elevation. Thyroid testing is pending. On exam, the patient was cooperative and voluntary. She denied active suicidal ideation. She was asking for inpatient care to help with her severe anxiety. The patient was given 1 mg of sublingual Ativan at her request. She was eventually ordered for her oral morning meds of bupropion, dicyclomine and methadone. The patient was felt medically clear. Patient is in the process of being seen by psychiatry case management. We await the final assessment. The case was assumed by Dr. Contreras at the change of shift. Prior/Outside records/notes reviewed: None Imaging/x-ray results per my interpretation: Chronic Medical/Social conditions affecting care: History of posttraumatic stress disorder and previous inpatient psychiatric admission Care/Management discussed with: Psychiatry case management. 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) Medical History (Updated 04/30/24 @ 06:11 by Tremaine Lee MD) Medical marijuana use Fibromyalgia Spinal stenosis Degenerative disc disease Chronic back pain History of stomach ulcers IBS (irritable bowel syndrome) Depression Anxiety Migraine Nightmare doxazosin Surgical History History of section x3 History of bilateral tubal ligation History of lumbar discectomy x3 History of lumbar spinal fusion x3 History of colonoscopy History of esophagogastroduodenoscopy (EGD) History of cholecystectomy History of tooth extraction all teeth History of nasal polypectomy x2 Family History Mother Family history of diabetes mellitus Father Family hx colonic polyps Grandmother (Paternal) Family hx colonic polyps Family hx of colon cancer Other No family history of adverse response to anesthesia Social History Smoking Status: Never smoker Cigarettes Per Day: 10 a day; Second Hand Exposure: No; Do You Dip or Chew Tobacco: No; Hx Alcohol Use: No Hx Substance Use: Yes (medical marijuana card--chronic pain) Last Used Substance Other:: last used over a month Preferred Language: Romanian Communication Ability: Effective Director Of Casework Services Required: No Beliefs That Will Affect Care: None Current Living Situation: Significant Other Current Living Situation Comment: Lives with fiance and son Feels Safe at Home: Yes Assistive Devices: Denture - Upper and Glasses Allergies Allergies Allergy/AdvReac Type Severity Reaction Status Date / Time sumatriptan Allergy Severe Anaphylaxis Verified 07/29/19 10:47 Sulfa (Sulfonamide Allergy Intermediate HIVES Verified 07/29/19 10:47 Antibiotics) celecoxib Allergy Mild RASH Verified 07/29/19 10:47 gabapentin Allergy Mild DIZZINESS Verified 07/29/19 10:47 Home Meds Home Medications Medication Instructions Recorded Confirmed methadone 10 mg/mL oral 215 mg PO QAM 07/04/18 04/30/24 concentrate (Methadone Intensol) acetaminophen 500 mg tablet 1,000 mg PO BID 03/18/19 04/30/24 (Acetaminophen Extra Strength) ibuprofen 800 mg tablet (IBU) 800 mg PO QPM 03/18/19 04/30/24 calcium carbonate (Tums) 600 - 900 mg PO 2XD 07/29/19 04/30/24 bupropion HCl 150 mg tablet,12 hr 150 mg PO DAILY 04/30/24 04/30/24 sustained-release (Wellbutrin SR) bupropion HCl 75 mg tablet 75 mg PO 1XD 04/30/24 04/30/24 clonazepam 0.5 mg tablet (Klonopin) 0.5 mg PO 3XD 04/30/24 04/30/24 hydroxyzine pamoate 25 mg capsule 25 mg PO 1XD 04/30/24 04/30/24 (Vistaril) Previous Rx's Medication Instructions Recorded dicyclomine 20 mg tablet 20 mg PO Q6H PRN abdominal pain 08/05/19 #30 tabs Results & Data (ED) Vital Signs Vital Signs - 24 hr 04/30/24 05:13 Temperature 36.8 C Temperature Source Temporal Artery Scan Pulse Rate 86 Respiratory Rate 18 Respiratory Effort / Characteristics Non-Labored Spontaneous Respiratory Depth Normal Respiratory Pattern Regular Blood Pressure 171/97 H Blood Pressure Mean 121 Pulse Oximetry 97 Oxygen Delivery Method Room Air Sepsis Recent Fever Within 48 Hours No Sepsis New/Unexplained Change in Mental Status No Sepsis Action Taken by Nursing No Action Required Home Medications Current Medication List: was personally reviewed by me Laboratory Data Attestation: I reviewed the patient's lab results. 04/30/24 05:40 04/30/24 05:40 Lab Results 04/30/24 04/30/24 Range/Units 05:26 05:40 WBC 7.38 (4.8-10.8) K/ul RBC 3.85 L (4.20-5.40) M/uL Hgb 11.9 L (12.0-16.0) g/dl Hct 35.0 L (37.0-47.0) % MCV 90.9 (80.0-100.0) fL MCH 30.9 (25.0-34.0) pg MCHC 34.0 (32.0-36.0) g/dL RDW Std Deviation 43.0 (36.4-46.3) fL RDW Coeff of Yung 13.0 (11.5-14.5) % Plt Count 262 (130-400) K/uL MPV 8.4 L (9.4-12.4) fL Immature Gran % (Auto) 0.3 % Neut % (Auto) 66.6 % Lymph % (Auto) 24.8 % [place] % (Auto) 6.4 % Eos % (Auto) 1.4 % Baso % (Auto) 0.5 % Neut # (Auto) 4.92 (1.40-6.50) K/uL Lymph # (Auto) 1.83 (1.20-3.40) K/uL [place] # (Auto) 0.47 (0.11-0.59) K/uL Eos # (Auto) 0.10 (0.00-0.50) K/uL Baso # (Auto) 0.04 (0.00-0.20) K/uL Immature Gran # (Auto) 0.02 (0.01-0.20) K/uL Sodium 137 (136-145) mmol/L Potassium 3.8 (3.5-5.1) mmol/L Chloride 104 (98-107) mmol/L Carbon Dioxide 25 (21-32) mmol/L Anion Gap 8 (3-11) BUN 9 (6-23) mg/dl Creatinine 0.92 (0.6-1.2) mg/dl Est Cr Clr Drug Dosing 66.2 ml/min Est GFR ( Amer) 80.7 ml/min Est GFR (Non-Af Amer) 69.6 ml/min BUN/Creatinine Ratio 9.8 L (10-20) Glucose 129 H (70-99(Fasting)) mg/dl Calcium 9.9 (8.6-10.3) mg/dl Total Bilirubin 0.4 (0.2-1.0) mg/dl AST 13 (13-39) U/L ALT 8 (7-52) U/L Alkaline Phosphatase 69 (34-104) U/L Total Protein 7.3 (6.0-8.3) gm/dl Albumin 4.6 (3.4-5.0) gm/dl Globulin 2.7 (2.5-4.0) gm/dl Albumin/Globulin Ratio 1.7 (0.9-2) Urine Color Yellow Urine Appearance Clear (Clear) Urine pH 5.5 (4.5-7.5) Ur Specific [place] 1.018 (1.000-1.030) Urine Protein Negative (Negative) Urine Glucose (UA) Negative (Negative) Urine Ketones Negative (Negative) Urine Blood 1+ H (Negative) Urine Nitrite Negative (Negative) Urine Bilirubin Negative (Negative) Urine Urobilinogen Negative (Negative) Ur Leukocyte Esterase Negative (Negative) Urine WBC (Auto) 0-5 (0-5) /hpf Urine RBC (Auto) 3-5 H (0-2) /hpf U Hyaline Cast (Auto) 0-2 (0-2) /lpf U Epithel Cells (Auto) 0-2 (0-2) /hpf Urine Bacteria (Auto) None Seen (None Seen) Salicylates < 3.0 L (3.0-30) mg/dl Urine Opiates Screen Neg (Neg) Ur Methadone, Qual Pos H (Neg) Urine Fentanyl Screen Neg (Neg) Acetaminophen 10 (10-30) ug/ml Urine Barbiturates Neg (Neg) Ur Phencyclidine (PCP) Neg (Neg) U Amphetamin/Meth Scrn Neg (Neg) MDMA (Ecstasy) Screen Pos H (Neg) U Benzodiazepines Scrn Neg (Neg) Ur Cocaine Metabolite Neg (Neg) U Marijuana (THC) Screen Neg (Neg) Ethyl Alcohol mg/dL < 10.0 (<10.0) mg/dl SARS-CoV-2, RNA, NAAT NEGATIVE (NEGATIVE) Administered Medications Discontinued Medications Lorazepam (Lorazepam 1 Mg Tab) 1 mg SL NOW STA Stop: 04/30/24 05:32 Last Admin: 04/30/24 05:38 Dose: 1 mg Documented By: RUPERTO Discharge Plan Visit Data Chief Complaint: Mental Health Evaluation Stated Complaint: ANXIETY, CAN'T SLEEP OR EAT, WANTS [facility] ED Provider: Tremaine Lee Discharge Problem: Anxiety Patient Disposition: Still a Patient Condition: Good Forms Stand Alone Forms: My [facility], Suicide Prevention Resources Prescriptions Prescriptions: No Action methadone [Methadone Intensol] 10 mg/mL Concentrate 215 mg PO QAM ibuprofen [IBU] 800 mg Tablet 800 mg PO QPM acetaminophen [Acetaminophen Extra Strength] 500 mg Tablet 1,000 mg PO BID Tums 300 mg (750 mg) Tablet,Chewable 600 - 900 mg PO 2XD dicyclomine 20 mg tablet 20 mg PO Q6H PRN (Reason: abdominal pain) Qty: 30 3RF Rx Instructions: Q6 as needed bupropion HCl [Wellbutrin SR] 150 mg tablet sustained-release 12 hr 150 mg PO DAILY bupropion HCl [Wellbutrin] 75 mg Tablet 75 mg PO 1XD Rx Instructions: take every day at noon clonazepam [Klonopin] 0.5 mg tablet 0.5 mg PO 3XD hydroxyzine pamoate [Vistaril] 25 mg capsule 25 mg PO 1XD Referrals Referrals: Diane Raman M.D. [Primary Care Provider] -
[2024-04-30] MEDS: LORazepam 1 MG TAB SL STA (05:38)
[2024-04-30 06:02] LABS: Basophils # (auto) 0.04 K/uL (0.00-0.20); Basophils % (auto) 0.5 %; Eosinophils % (auto) 1.4 %; Hemoglobin 11.9 g/dl (12.0-16.0); Immature Granulocytes # (auto) 0.02 K/uL (0.01-0.20); Immature Granulocytes % (auto) 0.3 %; Lymphocytes # (auto) 1.83 K/uL (1.20-3.40); Lymphocytes % (auto) 24.8 %; Mean Corpuscular Hemoglobin 30.9 pg (25.0-34.0); Mean Corpuscular Volume 90.9 fL (80.0-100.0); Mean Platelet Volume 8.4 fL (9.4-12.4); Monocytes # (auto) 0.47 K/uL (0.11-0.59); Monocytes % (auto) 6.4 %; Neutrophils # (auto) 4.92 K/uL (1.40-6.50); Neutrophils % (auto) 66.6 %; Platelet Count 262 K/uL (130-400); Red Blood Count 3.85 M/uL (4.20-5.40); White Blood Count 7.38 K/ul (4.8-10.8)
[2024-04-30 06:05] LABS: Appearance Urine Clear (Clear); Bacteria Urine Automated None Seen (None Seen); Bilirubin Urine Negative (Negative); Blood Urine 1+ (Negative); Cast Urine Automated 0-2 /lpf (0-2); Color Urine Yellow; Epithelial Cell Urine Auto 0-2 /hpf (0-2); Glucose Urine UA Negative (Negative); Ketones Urine Negative (Negative); Leukocyte Esterase Urine Negative (Negative); Nitrite Urine Negative (Negative); Protein Urine Negative (Negative); Specific Gravity Urine 1.018 (1.000-1.030); Urobilinogen Urine Negative (Negative); WBC Urine Automated 0-5 /hpf (0-5); pH Urine 5.5 (4.5-7.5)
[2024-04-30 06:16] LABS: Acetaminophen 10 ug/ml (10-30); Salicylate < 3.0 mg/dl (3.0-30)
[2024-04-30 06:17] LABS: Amphetamines+Metham, Urine Neg (Neg); Barbiturates, Urine Neg (Neg); Benzodiazepine, Urine Neg (Neg); Cocaine, Urine Neg (Neg); Fentanyl, Urine Neg (Neg); MDMA (Ecstacy), Urine Pos (Neg); Marijuana, Urine Neg (Neg); Methadone, Urine Pos (Neg); Opiate, Urine Neg (Neg); Phencyclidine, Urine Neg (Neg)
[2024-04-30] MEDS ORDERED: METHADONE ORAL SOLN 2 MG/ML PO STA (06:18)
[2024-04-30 06:22] LABS: Albumin Globulin Ratio 1.7 (0.9-2); Albumin Level 4.6 gm/dl (3.4-5.0); BUN Creatinine Ratio 9.8 (10-20); Bilirubin,Total 0.4 mg/dl (0.2-1.0); Calcium 9.9 mg/dl (8.6-10.3); Creatinine Clr Calc Pharmacy 66.2 ml/min; Est GFR (African American) 80.7 ml/min; Est GFR (Non-African American) 69.6 ml/min; Globulin 2.7 gm/dl (2.5-4.0); Potassium 3.8 mmol/L (3.5-5.1); Total Protein 7.3 gm/dl (6.0-8.3)
--- NOTE | 2024-04-30 06:29 | Emergency Department Note ---
ED Visit Note Received this patient in signout from Dr. Lee. See his note for full details. Patient with history of PTSD and anxiety depression worsened anxiety recently. Initially seen and basic blood work previously completed. Seen by case management as well as she is interested in inpatient treatment. Patient requested nicotine lozenges for nicotine withdrawal symptoms as well as lidocaine patches which were ordered. Accepted to [facility] for further inpatient psychiatric care on a 201.
[2024-04-30 06:34] LABS: Thyroid Stimulating Hormone 1.113 uIu/ml (0.300-4.500)
[2024-04-30] MEDS: LIDOCAINE 5% 1 PATCH TD STA (07:13)
[2024-04-30] MEDS: DICYCLOMINE HCL 10 MG CAP PO ONE (07:13)
[2024-04-30] MEDS: NICOTINE POLACRILEX 2 MG GUM MT PRN ×2 (07:13→13:00)
[2024-04-30] MEDS: METHADONE ORAL SOLN 2 MG/ML PO ONE (07:33)
[2024-04-30] MEDS: buPROPion SR 150 MG TABCR PO STA (07:33)
[2024-04-30] MEDS: clonazePAM 0.5 MG TAB PO SCH (13:37)
[2024-04-30] MEDS: ACETAMINOPHEN 500 MG TAB PO ONE (13:37)
--- NOTE | 2024-04-30 15:12 | History & Physical ---
Date of Service April 30, 2024 Impression / Recommendations Impression CEISA GOOD is a 58-year-old F who currently lives in [place] with her , has a history of PTSD, REJI with panic attacks, MDD, and was admitted on 04/30/24 09:22 on a 201 voluntary commitment for SI and severe depression and anxiety with inability to function. Diagnostically consistent with unspecified depressive disorder-MDD with anxious distress and panic attacks vs complicated bereavement vs substance-induced from high utilization of Klonopin as well as REJI with panic attacks and PTSD. Discussed importance of combining medication changes with re-initiation of outpatient therapy, especially given recent of her dog and re-experiencing some trauma symptoms with night terrors. Discussed medication treatment options in detail. Discussed risks, benefits and alternatives. Patient would like to start and consented to Luvox for MDD/REJI/PTSD and mirtazapine for REJI/insomnia/poor appetite and propranolol prn for anxiety/panic attacks. Discussed recommendation to attempt taper of Klonopin once anxiety becomes better managed, ideally once Luvox takes effect. Discontinuing Wellbutrin given concern this may be negatively impacting appetite, sleep and anxiety. Reviewed side effects including but not limited to: GI, ABAD, sexual side effects with Luvox; sedation/increased appetite/wgt gain with mirtazapine; low BP/syncope with propranolol. Overall I spent a total of 75 minutes for this admission including review of chart records, review of labwork, direct evaluation of the patient, counseling the patient, ordering medication, risk assessment, discussion with the psychiatric liason RN and documentation in the electronic health record. (1) Post traumatic stress disorder (PTSD): (2) Generalized anxiety disorder with panic attacks: (3) Depression: (4) Suicidal ideation: (5) Chronic pain: Plan 04/30/2024: The patient was admitted to the [facility] ([facility]) on q15 min checks (behavioral with suicide precautions) for safety. The patient will participate in group, recreational, and milieu therapies and will be offered additional individual and family sessions as clinically appropriate. -Continue PAPER SLITTER methadone, pain management medications, switch PAPER SLITTER Klonopin 0.5mg TID to TID prn -Discontinue Wellbutrin -Start Luvox 50mg qd -Start mirtazapine 15mg HS -Start propranolol 10mg BID prn for anxiety/panic attacks Inventory Assets Strengths: supportive relationships, willing to get treatment Needs: safety and stabilization, medication adjustment, additional coping skills, increased outpatient services Suicide Risk Level Suicide Risk Level: Moderate (q15 min suicide checks) (increased dep and anxiety with panic attacks and SI, but feels safe in the hospital, feels able to ask for support) Suicide Risk Level Comments: Risk Factors Assessment Male: No : Yes Do You Have Access To A Gun?: No Health Problems: Yes (chronic pain) Mental Health Diagnoses: Yes Substance Use Disorders: No Previous Attempt: No Family History of Suicide: Yes Previous Psychiatric Hospitalization: Yes Protective Factors Assessment : Yes Employed: No (disabled) Stable Relationships: Yes Supportive Family: Yes Good Rapport with Provider: Yes Psychiatric History Identifying Data CESIA GOOD is a 58-year-old F who currently lives in [place] with her , has a history of PTSD, REJI with panic attacks, MDD, and was admitted on 04/30/24 09:22 on a 201 voluntary commitment for SI and severe depresion and anxiety with inability to function. Chief Complaint "It's been just constant". History of Present Illness She presents for psychiatric admission for worsening depression, anxiety and SI. Her anxiety worsened in the past 3-4 days with increased GI symptoms causing decreased appetite, frequent panic attacks (multiple times per day), none stop severe worrying, and significant disruption in her sleep recently, with early more awakenings, as well as recent night terrors related to past PTSD symptoms. Things got so severe that after waking up last night at 3am she decided to drive to the hospital. She identifies recent stressors including her dog's last month and next week being the anniversary of her step-father's by suicide. She is currently prescribed psychiatric medications including Klonopin 0.5mg TID (denies any overuse of this recently, would like to eventually taper off this, previously had gone 5 years without it) and Wellbutrin SR 150mg daily and IR 75mg qafternoon (likes that it gives her motivation). However, notes her anxiety was better a few months ago when she was off the Wellbutrin. Psychiatric ROS notable for no current nor history of symptoms of al, psychosis, OCD, nor self-harm nor eating disorder. Past Psychiatric History Current Psychiatric Diagnosis: PTSD, REJI, MDD Outpatient Services: Dr. Anthony Judd for psychiatry, [facility] (hasn't seen her in a few months) Previous Psych Admissions: >15 most recent admission was at [facility] in 2022 Frequent hospitalizations in [id number] due to severe pain and SI Do You Have Access To A Gun?: No History of Previous Suicide Attempt: No Past Medication Trials: -Ambien (had sleep walking behaviors) -sertraline, fluoxetine, escitalopram, Paxil -Effexor -duloxetine -mirtazapine -propranolol for migraines in the past, caused fatigue -clonidine (was on the patch, used when weaned off one medication to another) Past Head Trauma/Neuro History History of Concussion/Seizure: Yes hx concussion after falling down steps while on Ambien Allergies Allergy/AdvReac Type Severity Reaction Status Date / Time sumatriptan Allergy Severe Anaphylaxis Verified 07/29/19 10:47 Sulfa (Sulfonamide Allergy Intermediate HIVES Verified 07/29/19 10:47 Antibiotics) celecoxib Allergy Mild RASH Verified 07/29/19 10:47 gabapentin Allergy Mild DIZZINESS Verified 07/29/19 10:47 Home Medications Medication Instructions Recorded Confirmed Type methadone 10 mg/mL oral 215 mg PO QAM 07/04/18 04/30/24 History concentrate (Methadone Intensol) acetaminophen 500 mg tablet 1,000 mg PO BID 03/18/19 04/30/24 History (Acetaminophen Extra Strength) ibuprofen 800 mg tablet (IBU) 800 mg PO QPM 03/18/19 04/30/24 History calcium carbonate (Tums) 600 - 900 mg PO 2XD 07/29/19 04/30/24 History dicyclomine 20 mg tablet 20 mg PO Q6H PRN abdominal pain 08/05/19 04/30/24 Rx #30 tabs bupropion HCl 150 mg tablet,12 hr 150 mg PO DAILY 04/30/24 04/30/24 History sustained-release (Wellbutrin SR) bupropion HCl 75 mg tablet 75 mg PO 1XD 04/30/24 04/30/24 History clonazepam 0.5 mg tablet (Klonopin) 0.5 mg PO 3XD 04/30/24 04/30/24 History hydroxyzine pamoate 25 mg capsule 25 mg PO 1XD 04/30/24 04/30/24 History (Vistaril) Family History Family History of: Depression and Suicide Completion (step-father) Alcohol History Hx of Alcohol Use Over the Past 12 Months: No Smoking Use Have You Smoked or Used Tobacco Products in the Last 30 Days: Yes tobacco type: cigarettes Smoking Status: Current every day smoker Smoking packs per day: 1 Substance History Hx of Prescription Med Misuse Over the Past 12 Months: No Hx of Over the Counter Med Misuse Over the Past 12 Months: No Hx of Inhalent Misuse Over the Past 12 Months: No Hx of Organic Substance Use Over the Past 12 Months: Yes (medical marijuana; last used 1 month ago) Hx of Illegal Substances/Street Drug Use Over Past 12 Months: No Problems as a Result of Past Substance Use: None Identified Uses some cannabis, especially CBD but has expensive so stopped using it. Personal History Living Arrangements: Home Highest Grade Completed: College Highest Grade Completed Comment: BA college degree Marital Status: Number Of Children: "3 mine, 2 's" Beliefs That Will Affect Care: None Patient History Medical History (Updated 04/30/24 @ 20:40 by Angela Bellamy MD) Medical marijuana use Fibromyalgia Spinal stenosis Degenerative disc disease Chronic back pain History of stomach ulcers IBS (irritable bowel syndrome) Depression Anxiety Migraine Nightmare doxazosin Surgical History History of section x3 History of bilateral tubal ligation History of lumbar discectomy x3 History of lumbar spinal fusion x3 History of colonoscopy History of esophagogastroduodenoscopy (EGD) History of cholecystectomy History of tooth extraction all teeth History of nasal polypectomy x2 Family History Mother Family history of diabetes mellitus Father Family hx colonic polyps Grandmother (Paternal) Family hx colonic polyps Family hx of colon cancer Other No family history of adverse response to anesthesia Social History Smoking Status: Current every day smoker Cigarettes Per Day: 10 a day; Second Hand Exposure: No; Do You Dip or Chew Tobacco: No; Hx Alcohol Use: No Hx Substance Use: Yes (medical marijuana card--chronic pain) Last Used Substance Other:: last used over a month Preferred Language: Croatian Communication Ability: Effective 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 Beliefs That Will Affect Care: None Current Living Situation: Significant Other Current Living Situation Comment: Lives with fiance and son Feels Safe at Home: Yes Gender Identity: Female Assistive Devices: Denture - Upper and Glasses Review of Systems Review of Systems: All systems reviewed & are unremarkable except as noted in HPI & below Physical Exam Psychiatric: Orientation: alert and oriented x 3 Apperance: appropriately dressed and appropriately groomed Eye Contact: good eye contact Motor Behavior: no abnormal motor movements Speech: normal rate/rhythm/volume of speech Affect: + depressed affect and + anxious affect Mood: + depressed mood and + anxious mood Thought Process: + circumstantial thought process Thought Content: reality based without delusions Suicidal Thoughts: denies suicidal plan and denies suicidal intent; + reports suicidal thoughts (intermittent thoughts ) Homicidal Thoughts: denies homicidal thoughts Hallucinations: no auditory hallucinations and no visual hallucinations Cognition: recent memory grossly intact, remote memory grossly intact, attention grossly intact and language grossly intact Estimated Intelligence: consistent with education level Insight: + fair insight Judgment: + limited judgement Vital Signs (Past 24 Hours): Last Vital Signs Temp 36.9 C 04/30/24 10:11 Pulse 91 H 04/30/24 10:11 Resp 18 04/30/24 10:11 BP 149/89 H 04/30/24 10:11 Pulse Ox 97 04/30/24 10:11 O2 Del Method Room Air 04/30/24 10:11 Exam Statement: A physical exam was performed in the ED by Dr. Lee for the purposes of medical clearance. I accept that physical as correct and adequate for the purposes of the inpatient physical exam. Results & Data ([facility]) Laboratory Results Laboratory Results - last 24 hr 04/30/24 04/30/24 05:26 05:40 WBC 7.38 RBC 3.85 L Hgb 11.9 L Hct 35.0 L MCV 90.9 MCH 30.9 MCHC 34.0 RDW Std Deviation 43.0 RDW Coeff of Yung 13.0 Plt Count 262 MPV 8.4 L Immature Gran % (Auto) 0.3 Neut % (Auto) 66.6 Lymph % (Auto) 24.8 [place] % (Auto) 6.4 Eos % (Auto) 1.4 Baso % (Auto) 0.5 Neut # (Auto) 4.92 Lymph # (Auto) 1.83 [place] # (Auto) 0.47 Eos # (Auto) 0.10 Baso # (Auto) 0.04 Immature Gran # (Auto) 0.02 Sodium 137 Potassium 3.8 Chloride 104 Carbon Dioxide 25 Anion Gap 8 BUN 9 Creatinine 0.92 Est Cr Clr Drug Dosing 66.2 Est GFR ( Amer) 80.7 Est GFR (Non-Af Amer) 69.6 BUN/Creatinine Ratio 9.8 L Glucose 129 H Calcium 9.9 Total Bilirubin 0.4 AST 13 ALT 8 Alkaline Phosphatase 69 Total Protein 7.3 Albumin 4.6 Globulin 2.7 Albumin/Globulin Ratio 1.7 TSH 1.113 Urine Color Yellow Urine Appearance Clear Urine pH 5.5 Ur Specific [place]ell 1.018 Urine Protein Negative Urine Glucose (UA) Negative Urine Ketones Negative Urine Blood 1+ H Urine Nitrite Negative Urine Bilirubin Negative Urine Urobilinogen Negative Ur Leukocyte Esterase Negative Urine WBC (Auto) 0-5 Urine RBC (Auto) 3-5 H U Hyaline Cast (Auto) 0-2 U Epithel Cells (Auto) 0-2 Urine Bacteria (Auto) None Seen Salicylates < 3.0 L Urine Opiates Screen Neg Ur Methadone, Qual Pos H U Methadone Metabolites Pending Ur Methadone Confirm Pending Urine Fentanyl Screen Neg Acetaminophen 10 Urine Barbiturates Neg Ur Phencyclidine (PCP) Neg U Amphetamin/Meth Scrn Neg Urine MDEA Pending MDMA (Ecstasy) Screen Pos H MDMA Pending Urine MDMA Pending U Benzodiazepines Scrn Neg Ur Cocaine Metabolite Neg U Marijuana (THC) Screen Neg Drug Screen Comment Pending Ethyl Alcohol mg/dL < 10.0 SARS-CoV-2, RNA, NAAT NEGATIVE Current Inpatient Medications Current Inpatient Medications: Current Inpatient Medications Acetaminophen (Acetaminophen 500 Mg Tab) 1,000 mg PO BID LATANYA Stop: 05/30/24 20:59 Clonazepam (Clonazepam 0.5 Mg Tab) 0.5 mg PO TID LATANYA Stop: 05/30/24 13:59 Last Admin: 04/30/24 13:37 Dose: 0.5 mg Methadone HCl (Methadone Oral Soln 2 Mg/Ml) 215 mg PO QAM LATANYA Stop: 05/15/24 08:59 Nicotine Polacrilex (Nicotine Polacrilex 2 Mg Gum) 1 piece MT PRN PRN PRN Reason: smoking cessation Stop: 05/30/24 10:06 Last Admin: 04/30/24 13:00 Dose: 1 piece Methadone - Patient' s Own Controlled Med 3 1 ea PO DAILY LATANYA Stop: 05/15/24 08:59
[2024-04-30] MEDS ORDERED: hydrOXYzine HCl 25 MG TAB PO PRN (15:46)
[2024-04-30] MEDS ORDERED: SODIUM CHLORIDE 0.65% NA SOLN 45 ML (OCEAN) PRN (15:46)
[2024-04-30] MEDS: NICOTINE 14 MG/24 HR PATCH TD SCH (16:21)
[2024-04-30] MEDS: LIDOCAINE 5% 1 PATCH TD SCH (16:26)
[2024-04-30] MEDS: PROPRANOLOL HCL 10 MG TAB PO PRN (17:20)
[2024-04-30] MEDS: clonazePAM 0.5 MG TAB PO PRN (18:58)
[2024-04-30] MEDS: ACETAMINOPHEN 500 MG TAB PO SCH (20:03)
[2024-04-30] MEDS: IBUPROFEN 200 MG TAB PO SCH (20:04)
[2024-04-30] MEDS: MIRTAZAPINE TAB 15 MG TAB PO SCH (21:04)
[2024-05-01] MEDS: IBUPROFEN 200 MG TAB PO PRN (04:45)
[2024-05-01] MEDS: METHADONE ORAL SOLN 2 MG/ML PO SCH (08:44)
[2024-05-01] MEDS: fluvoxaMINE MALEATE 50 MG TAB PO SCH (08:45)
[2024-05-01] MEDS: METHADONE PO SCH (08:45)
[2024-05-01] MEDS ORDERED: METHADONE ORAL SOLN 2 MG/ML PO SCH (09:00)
--- NOTE | 2024-05-01 09:10 | Psychiatric Progress Note ---
Date of Service May 01, 2024 Impression / Recommendations Impression CESIA GOOD is a 58-year-old F who currently lives in [place] with her , has a history of PTSD, REJI with panic attacks, MDD, and was admitted on 04/30/24 09:22 on a 201 voluntary commitment for SI and severe depression and anxiety with inability to function. Diagnostically consistent with unspecified depressive disorder-MDD with anxious distress and panic attacks vs complicated bereavement vs substance-induced from high utilization of Klonopin as well as REJI with panic attacks and PTSD. Discussed importance of combining medication changes with re-initiation of outpatient therapy, especially given recent of her dog and re-experiencing some trauma symptoms with night terrors. A: Mood improving, less anxiety today and slept better after addition of mirtazapine. Tolerating initial dose of Luvox so far, but just received first dose this morning. May be having some improvement in anxiety from discontinuation of Wellbutrin. Finding some benefit from propranolol, working to utilize less Klonopin. Overall, I spent a total of 36 minutes on this case including meeting with the patient, reviewing the chart, nursing report, multidisciplinary team meeting, orders, and documentation. (1) Post traumatic stress disorder (PTSD): (2) Generalized anxiety disorder with panic attacks: (3) Depression: (4) Chronic pain: Plan 05/01/2024: -Continue current medications and tx plan. 04/30/2024: The patient was admitted to the [facility] ([facility] mental health unit) on q15 min checks (behavioral with suicide precautions) for safety. The patient will participate in group, recreational, and milieu therapies and will be offered additional individual and family sessions as clinically appropriate. -Continue NECK BAND SETTER methadone, pain management medications, switch NECK BAND SETTER Klonopin 0.5mg TID to TID prn -Discontinue Wellbutrin -Start Luvox 50mg qd -Start mirtazapine 15mg HS -Start propranolol 10mg BID prn for anxiety/panic attacks Inventory Assets Strengths: supportive relationships, willing to get treatment Needs: safety and stabilization, medication adjustment, additional coping skills, increased outpatient services Suicide Risk Level Suicide Risk Level: Moderate (q15 min suicide checks) (increased dep and anxiety with panic attacks but now denying SI, feels safe in the hospital, feels able to ask for support) Suicide Risk Level Comments: Risk Factors Assessment Male: No : Yes Do You Have Access To A Gun?: No Health Problems: Yes (chronic pain) Mental Health Diagnoses: Yes Substance Use Disorders: No Previous Attempt: No Family History of Suicide: Yes Previous Psychiatric Hospitalization: Yes Protective Factors Assessment : Yes Employed: No (disabled) Stable Relationships: Yes Supportive Family: Yes Good Rapport with Provider: Yes Interval History Identifying Information CESIA GOOD is a 58-year-old F who currently lives in [place] with her , has a history of PTSD, REJI with panic attacks, MDD, and was admitted on 04/30/24 09:22 on a 201 voluntary commitment for SI and severe depression and anxiety with inability to function. Chief Complaint "I slept all the way through until 5am". Review of Systems Sleep Information Total Hours of Sleep: 6 Meal Information Percent Meal Consumed - Lunch: 50 Percent Meal Consumed - Dinner: 80 Subjective Subjective Patient was seen & assessed and interval progress reviewed with treatment team nursing and social work. Frequently at the nurses station and asking for medications. Slept well last night with mirtazapine which she is pleased about. Denies SI today, feels anxiety is somewhat improved here to due to being away from stressors at home with her and new dog. Tried prn propranolol and found this did seem to help with "took the edge off" her anxiety. Trying to reduce how often she uses Klonopin. No side effects from mirtazapine or Luvox so far. Worries about how methadone clinic may respond to her being hospitalized due to loss of take home privileges in past after an inpatient psychiatric hospitalization. She recalls this was due to having SI resulting in inpatient psych admission but that after hospitalization, even with resolution of SI, her providers at the methadone clinic had reservations but she regained her take home privileges after a team meeting. She denies SI and feels she will continue to be safe so hopes that a similar situation doesn't occur this time after discharge. Continues to have pain symptoms but feels her current medications are working well to manage this. Physical Exam Psychiatric Orientation: alert and oriented x 3 Apperance: appropriately dressed and appropriately groomed Eye Contact: good eye contact Motor Behavior: no abnormal motor movements Speech: normal rate/rhythm/volume of speech Affect: + depressed affect and + anxious affect Mood: + depressed mood and + anxious mood Thought Process: + circumstantial thought process Thought Content: reality based without delusions Suicidal Thoughts: denies suicidal thoughts, denies suicidal plan and denies suicidal intent Homicidal Thoughts: denies homicidal thoughts Hallucinations: no auditory hallucinations and no visual hallucinations Cognition: recent memory grossly intact, remote memory grossly intact, attention grossly intact and language grossly intact Estimated Intelligence: consistent with education level Insight: + fair insight Judgment: + fair judgement Vital Signs (Past 24 Hours) Last Vital Signs Temp 35.8 C L 05/01/24 06:00 Pulse 77 05/01/24 06:28 Resp 16 05/01/24 06:00 BP 111/68 05/01/24 06:28 Pulse Ox 97 04/30/24 10:11 O2 Del Method Room Air 04/30/24 10:11 Results & Data ([facility]) Current Inpatient Medications Current Inpatient Medications: Current Inpatient Medications Acetaminophen (Acetaminophen 500 Mg Tab) 1,000 mg PO BID LATANYA Stop: 05/30/24 20:59 Last Admin: 05/01/24 08:45 Dose: 1,000 mg Al Hydrox/Mg Hydrox/Simethicone (Aluminum/Magnesium Susp 30 Ml Udc) 30 ml PO Q4H PRN PRN Reason: GI Upset Stop: 05/30/24 15:45 Clonazepam (Clonazepam 0.5 Mg Tab) 0.5 mg PO TID PRN PRN Reason: Anxiety Stop: 05/30/24 13:59 Last Admin: 05/01/24 04:45 Dose: 0.5 mg Fluvoxamine Maleate (Fluvoxamine Maleate 50 Mg Tab) 50 mg PO DAILY LATANYA Stop: 05/31/24 08:59 Last Admin: 05/01/24 08:45 Dose: 50 mg Hydroxyzine HCl (Hydroxyzine Hcl 25 Mg Tab) 50 mg PO HSZ PRN PRN Reason: Insomnia Stop: 05/30/24 15:45 Ibuprofen (Ibuprofen 200 Mg Tab) 400 mg PO Q8H PRN PRN Reason: Pain Stop: 05/30/24 19:59 Last Admin: 05/01/24 04:45 Dose: 400 mg Lidocaine (Lidocaine 5% 1 Patch) 1 patch TD QAM LATANYA Stop: 05/30/24 15:44 Last Admin: 05/01/24 08:46 Dose: 1 patch Magnesium Hydroxide (Magnesium Hydroxide Susp 30 Ml Udc) 30 ml PO DAILY PRN PRN Reason: Constipation Stop: 05/30/24 15:45 Methadone HCl (Methadone Oral Soln 2 Mg/Ml) 215 mg PO QAM LATANYA Stop: 05/15/24 08:59 Last Admin: 05/01/24 08:44 Dose: 215 mg Mirtazapine (Mirtazapine Tab 15 Mg Tab) 15 mg PO HS LATANYA Stop: 05/30/24 21:59 Last Admin: 04/30/24 21:04 Dose: 15 mg Miscellaneous (Remove Lidoderm Patch) 1 each N/A DAILY@2100 LATANYA Stop: 05/30/24 23:58 Last Admin: 04/30/24 21:01 Dose: 1 each Miscellaneous (Remove Nicoderm Patch) 1 each N/A DAILY@0859 [facility] Stop: 05/31/24 08:58 Last Admin: 05/01/24 08:46 Dose: 1 each Nicotine (Nicotine 14 Mg/24 Hr Patch) 1 patch TD QAM LATANYA Stop: 05/30/24 15:59 Last Admin: 05/01/24 08:46 Dose: 1 patch Nicotine Polacrilex (Nicotine Polacrilex 2 Mg Gum) 1 piece MT PRN PRN PRN Reason: smoking cessation Stop: 05/30/24 10:06 Last Admin: 05/01/24 07:22 Dose: 1 piece Methadone - Patient' s Own Controlled Med 3 1 ea PO DAILY LATANYA Stop: 05/15/24 08:59 Last Admin: 05/01/24 08:45 Dose: 1 ea Propranolol HCl (Propranolol Hcl 10 Mg Tab) 10 mg PO BID PRN PRN Reason: Anxiety Stop: 05/30/24 20:59 Last Admin: 04/30/24 17:20 Dose: 10 mg Sodium Chloride (Sodium Chloride 0.65% Na Soln 45 Ml (Mccone)) 1 - 2 sprays NA PRN PRN PRN Reason: Nasal Dryness/Congestion Stop: 05/30/24 15:45 Mental Health & Subst Abuse Tx Psychiatrist Date Of Appointment With Psychiatric Provider: 06/30 Therapist Name of Therapist: Viky Robles Post Discharge Appointments Primary Care Physician Name Of Family Doctor/PCP: Marifer Ellis (LINE INSTALLATION SUPERVISOR) at [facility] Date of Future Appointment with PCP: 06/30
[2024-05-01] MEDS: MAGNESIUM HYDROXIDE SUSP 30 ML UDC PO PRN (11:54)
[2024-05-01] MEDS: ACETAMINOPHEN 500 MG TAB PO PRN (19:29)
[2024-05-02] MEDS: METHADONE ORAL SOLN 2 MG/ML PO SCH (06:30)
[2024-05-02] MEDS: METHADONE PO SCH (06:32)
[2024-05-02] MEDS ORDERED: METHADONE PO SCH (08:00)
[2024-05-02] MEDS ORDERED: METHADONE ORAL SOLN 2 MG/ML PO SCH (08:00)
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
[2024-05-02] MEDS: PRAZOSIN HCL 1 MG CAP PO SCH (21:08)
[2024-05-03] MEDS: LOPERAMIDE HCL 2 MG CAP PO STA (11:02)
[2024-05-03] MEDS: clonazePAM 0.5 MG TAB PO PRN (13:12)
--- NOTE | 2024-05-03 13:48 | Psychiatric Progress Note ---
Date of Service May 03, 2024 Impression / Recommendations Impression CESIA GOOD is a 58-year-old F who currently lives in [place] with her , has a history of PTSD, REJI with panic attacks, MDD, and was admitted on 04/30/24 09:22 on a 201 voluntary commitment for SI and severe depression and anxiety with inability to function. Diagnostically consistent with unspecified depressive disorder-MDD with anxious distress and panic attacks vs complicated bereavement vs substance-induced from high utilization of Klonopin as well as REJI with panic attacks and PTSD. Discussed importance of combining medication changes with re-initiation of outpatient therapy, especially given recent of her dog and re-experiencing some trauma symptoms with night terrors. A: Patient presents an improved outlook and appears less anxious. No nightmares overnight. Discussed strategy to schedule Klonopin and use extra 0.5 mg as needed with aim to cut out afternoon dose; patient was agreeable. Plan to increase prazosin as it is well-tolerated and patient counseled to discuss further titration with outpatient psychiatrist. Patient would likely benefit from medication assisted therapy to better address and process past trauma. Overall, I spent a total of 60 minutes on this case including meeting with the patient, reviewing the chart, nursing report, multidisciplinary team meeting, orders, and documentation. (1) Post traumatic stress disorder (PTSD): (2) Generalized anxiety disorder with panic attacks: (3) Depression: (4) Chronic pain: Plan 05/03/2024: Schedule Klonopin 0.5 mg twice daily plus Klonopin 0.5 mg daily as needed. Increase prazosin to 2 mg at bedtime. 05/02/2024: Start prazosin 1 mg at bedtime. 05/01/2024: -Continue current medications and tx plan. 04/30/2024: The patient was admitted to the [facility] ([facility]) on q15 min checks (behavioral with suicide precautions) for safety. The patient will participate in group, recreational, and milieu therapies and will be offer ed additional individual and family sessions as clinically appropriate. -Continue SENIOR CORPORATE STRATEGY MANAGER methadone, pain management medications, switch SENIOR CORPORATE STRATEGY MANAGER Klonopin 0.5mg TID to TID prn -Discontinue Wellbutrin -Start Luvox 50mg qd -Start mirtazapine 15mg HS -Start propranolol 10mg BID prn for anxiety/panic attacks Inventory Assets Strengths: supportive relationships, willing to get treatment Needs: safety and stabilization, medication adjustment, additional coping skills, increased outpatient services Suicide Risk Level Suicide Risk Level: Moderate (q15 min suicide checks) (increased dep and anxiety with panic attacks but now denying SI, feels safe in the hospital, feels able to ask for support) Suicide Risk Level Comments: Risk Factors Assessment Male: No : Yes Do You Have Access To A Gun?: No Health Problems: Yes (chronic pain) Mental Health Diagnoses: Yes Substance Use Disorders: No Previous Attempt: No Family History of Suicide: Yes Previous Psychiatric Hospitalization: Yes Protective Factors Assessment : Yes Employed: No (disabled) Stable Relationships: Yes Supportive Family: Yes Good Rapport with Provider: Yes Interval History Identifying Information CESIA GOOD is a 58-year-old F who currently lives in [place] with her , has a history of PTSD, REJI with panic attacks, MDD, and was admitted on 04/30/24 09:22 on a 201 voluntary commitment for SI and severe depression and anxiety with inability to function. Chief Complaint Anxiety Review of Systems Sleep Information Total Hours of Sleep: 7.15 Sleep Comments: HS Remwron and Prazosin Meal Information Percent Meal Consumed - Breakfast: 100 Percent Meal Consumed - Lunch: 80 Percent Meal Consumed - Dinner: 40 Subjective Subjective Patient was seen & assessed and interval progress reviewed with treatment team nursing and social work Reports sleeping well last night. Says that she was on Klonopin 3 times daily for a little under 2 years and was on it in the past as well. Says that she feels physically relaxed and mentally calm. Says she was not given propranolol because of a low heart rate. Says hydroxyzine is minimally effective for her. Complains of GI issues of diarrhea and previously constipation; denies cramping says she feels fine now. Reports being in ketamine assisted therapy in the past through her [facility] and found it was effective when she was engaging in therapy says she stopped doing the therapy component however continue to take the ketamine and she appreciated the temporary relief that it provided. Reports initially she had some sedation after ketamine however the side effect subsided with longer-term use. Denies excess caffeine use. Denies having any sedation or dizziness this a.m. Reviewed past medications with the patient and she reports being on Prozac, Zoloft, Paxil, Lexapro, Wellbutrin, Effexor, Cymbalta, Elavil, Thorazine for sleep, Vistaril, Restoril, Ambien, doxepin, trazodone, propranolol, methadone, gabapentin, pregabalin. Reports being taken off her serotonin reuptake inhibitor antidepressant and was on Wellbutrin for the past few years. Physical Exam Mental Examination Appearance: Well Groomed Eye Contact: Maintains Eye Contact Motor Behavior: Restless Speech: Normal Mood: Anxious Affect: Congruent Thought Process: Intact and Linear Thought Content: Intact Hallucinations: None Insight: Fair Judgement: Poor Vital Signs (Past 24 Hours) Last Vital Signs Temp 36.5 C 05/03/24 06:35 Pulse 62 05/03/24 06:36 Resp 18 05/03/24 06:35 BP 125/69 05/03/24 06:36 Pulse Ox 97 04/30/24 10:11 O2 Del Method Room Air 04/30/24 10:11 Results & Data ([facility]) Current Inpatient Medications Current Inpatient Medications: Current Inpatient Medications Acetaminophen (Acetaminophen 500 Mg Tab) 1,000 mg PO BID PRN PRN Reason: Pain Stop: 05/30/24 20:59 Last Admin: 05/03/24 11:57 Dose: 1,000 mg Al Hydrox/Mg Hydrox/Simethicone (Aluminum/Magnesium Susp 30 Ml Udc) 30 ml PO Q4H PRN PRN Reason: GI Upset Stop: 05/30/24 15:45 Clonazepam (Clonazepam 0.5 Mg Tab) 0.5 mg PO DAILY PRN PRN Reason: Anxiety Stop: 05/30/24 15:45 Last Admin: 05/03/24 13:12 Dose: 0.5 mg Clonazepam (Clonazepam 0.5 Mg Tab) 0.5 mg PO BID LATANYA Stop: 06/02/24 20:59 Fluvoxamine Maleate (Fluvoxamine Maleate 50 Mg Tab) 50 mg PO DAILY LATANYA Stop: 05/31/24 08:59 Last Admin: 05/03/24 06:20 Dose: 50 mg Hydroxyzine HCl (Hydroxyzine Hcl 25 Mg Tab) 50 mg PO HSZ PRN PRN Reason: Insomnia Stop: 05/30/24 15:45 Ibuprofen (Ibuprofen 200 Mg Tab) 400 mg PO Q8H PRN PRN Reason: Pain Stop: 05/30/24 19:59 Last Admin: 05/02/24 19:48 Dose: 400 mg Lidocaine (Lidocaine 5% 1 Patch) 1 patch TD QAM [facility] Stop: 05/30/24 15:44 Last Admin: 05/03/24 06:26 Dose: 1 patch Magnesium Hydroxide (Magnesium Hydroxide Susp 30 Ml Udc) 30 ml PO DAILY PRN PRN Reason: Constipation Stop: 05/30/24 15:45 Last Admin: 05/01/24 11:54 Dose: 30 ml Methadone HCl (Methadone Oral Soln 2 Mg/Ml) 215 mg PO Q24H LATANYA Stop: 05/16/24 06:59 Last Admin: 05/03/24 06:19 Dose: 215 mg Mirtazapine (Mirtazapine Tab 15 Mg Tab) 15 mg PO HS [facility] Stop: 05/30/24 21:59 Last Admin: 05/02/24 21:08 Dose: 15 mg Miscellaneous (Remove Lidoderm Patch) 1 each N/A DAILY@2100 [facility] Stop: 05/30/24 23:58 Last Admin: 05/02/24 14:36 Dose: 1 each Miscellaneous (Remove Nicoderm Patch) 1 each N/A DAILY@0859 [facility] Stop: 05/31/24 08:58 Last Admin: 05/03/24 06:25 Dose: 1 each Nicotine (Nicotine 14 Mg/24 Hr Patch) 1 patch TD QAM [facility] Stop: 05/30/24 15:59 Last Admin: 05/03/24 06:20 Dose: 1 patch Nicotine Polacrilex (Nicotine Polacrilex 2 Mg Gum) 1 piece MT PRN PRN PRN Reason: smoking cessation Stop: 05/30/24 10:06 Last Admin: 05/03/24 13:12 Dose: 1 piece Methadone - Patient' s Own Controlled Med 3 1 ea PO Q24H [facility] Stop: 05/16/24 06:59 Last Admin: 05/03/24 06:21 Dose: 107.5 ml Prazosin HCl (Prazosin Hcl 1 Mg Cap) 2 mg PO HS [facility] Stop: 06/02/24 21:59 Propranolol HCl (Propranolol Hcl 10 Mg Tab) 10 mg PO BID PRN PRN Reason: Anxiety Stop: 05/30/24 20:59 Last Admin: 05/02/24 14:15 Dose: 10 mg Sodium Chloride (Sodium Chloride 0.65% Na Soln 45 Ml ([place])) 1 - 2 sprays NA PRN PRN PRN Reason: Nasal Dryness/Congestion Stop: 05/30/24 15:45 Mental Health & Subst Abuse Tx Psychiatrist Name of Psychiatrist: Dr. Evelyn Mcmanus Psychiatrist's Date Of Appointment With Psychiatric Provider: 06/03/24 Time of Appointment with Psychiatrist: 4:25 pm-in person Psychiatric Appointment Comment: [address] [place] [address] [place] Therapist Name of Therapist: Viky Robles Post Discharge Appointments Primary Care Physician Name Of Family Doctor/PCP: Marifer Ellis (EQUINE SCIENCE INSTRUCTOR) at [facility] Date of Future Appointment with PCP: 06/30
[2024-05-03 15:47] LABS: MDA negative; MDEA negative; MDMA (Ecstasy) Urine, Confirm negative; Methadone, Ur Metabolite >10000 ng/mL (<100); Methadone, Ur Verification >10000 ng/mL (<100)
[2024-05-03] MEDS: clonazePAM 0.5 MG TAB PO SCH (21:17)
[2024-05-03] MEDS: PRAZOSIN HCL 1 MG CAP PO SCH (21:17)
[2024-05-04] MEDS: ALUMINUM/MAGNESIUM SUSP 30 ML UDC PO PRN (09:14)
[2024-05-04] MEDS: LOPERAMIDE HCL 2 MG CAP PO STA (09:46)
--- NOTE | 2024-05-04 09:56 | Discharge Summary ---
Date of Service May 04, 2024 History of Present Illness She presents for psychiatric admission for worsening depression, anxiety and SI. Her anxiety worsened in the past 3-4 days with increased GI symptoms causing decreased appetite, frequent panic attacks (multiple times per day), none stop severe worrying, and significant disruption in her sleep recently, with early more awakenings, as well as recent night terrors related to past PTSD symptoms. Things got so severe that after waking up last night at 3am she decided to drive to the hospital. She identifies recent stressors including her dog's last month and next week being the anniversary of her step-father's by suicide. She is currently prescribed psychiatric medications including Klonopin 0.5mg TID (denies any overuse of this recently, would like to eventually taper off this, previously had gone 5 years without it) and Wellbutrin SR 150mg daily and IR 75mg qafternoon (likes that it gives her motivation). However, notes her anxiety was better a few months ago when she was off the Wellbutrin. Psychiatric ROS notable for no current nor history of symptoms of al, psychosis, OCD, nor self-harm nor eating disorder. Physical Exam Mental Examination Appearance: Well Groomed Eye Contact: Maintains Eye Contact Motor Behavior: Unremarkable Speech: Normal Mood: Euthymic and Calm Affect: Congruent Thought Process: Intact and Linear Thought Content: Intact Hallucinations: None Insight: Fair Judgement: Fair Vital Signs (Past 24 Hours) Last Vital Signs Temp 36.7 C 05/04/24 06:49 Pulse 67 05/04/24 06:49 Resp 18 05/04/24 06:49 BP 116/76 05/04/24 06:49 Pulse Ox 97 04/30/24 10:11 O2 Del Method Room Air 04/30/24 10:11 Principal Diagnosis Post Traumatic Stress Disorder Psychiatric Data See daily stay summary. In short, safety was maintained and the patient was cooperative with care. Medication changes included d/c home Wellbutrin, starting Fluovoxamine (initially at 50mg then reduced to 25mg given diarrhea s/e), starting Mirtazapine 15mg HS, starting Prazosin 3mg HS for PTSD related nightmares and they tolerated this well. Attempted to run a family session however had a last minute work obligation. Pt noted improvement in mood, nightmare intensity and frequency, physical anxiety, and was future oriented. Day of Discharge Assessment Today the patient voices readiness for discharge. They note improvement in mood and deny thoughts to harm self or others. Thoughts remain organized and they are improved from admission. There is no evidence of psychosis. They agree to take mediations as prescribed and keep follow-up appointments. They are stable for discharge to outpatient level of care. Transition of Care Transition Of Care Record: was reviewed with the patient Advance Directives Advance Directives Information Provided: Yes Advance Directives: No Mental Health Advance Directive: No Advance Directives on File: No Living Will: No Power of Hand Presser: No Advance Directives Reason:: Declines as Mental Health Visit. Suicide Risk Level Suicide Risk Level Comments: Risk Factors Assessment Male: No : Yes Do You Have Access To A Gun?: No Health Problems: Yes (chronic pain) Mental Health Diagnoses: Yes Substance Use Disorders: No Previous Attempt: No Family History of Suicide: Yes Previous Psychiatric Hospitalization: Yes Protective Factors Assessment : Yes Employed: No (disabled) Stable Relationships: Yes Supportive Family: Yes Good Rapport with Provider: Yes Discharge Data Lab Results 04/30/24 04/30/24 05:26 05:40 WBC 7.38 RBC 3.85 L Hgb 11.9 L Hct 35.0 L MCV 90.9 MCH 30.9 MCHC 34.0 RDW Std Deviation 43.0 RDW Coeff of Yung 13.0 Plt Count 262 MPV 8.4 L Immature Gran % (Auto) 0.3 Neut % (Auto) 66.6 Lymph % (Auto) 24.8 [place] % (Auto) 6.4 Eos % (Auto) 1.4 Baso % (Auto) 0.5 Neut # (Auto) 4.92 Lymph # (Auto) 1.83 [place] # (Auto) 0.47 Eos # (Auto) 0.10 Baso # (Auto) 0.04 Immature Gran # (Auto) 0.02 Sodium 137 Potassium 3.8 Chloride 104 Carbon Dioxide 25 Anion Gap 8 BUN 9 Creatinine 0.92 Est Cr Clr Drug Dosing 66.2 Est GFR ( Amer) 80.7 Est GFR (Non-Af Amer) 69.6 BUN/Creatinine Ratio 9.8 L Glucose 129 H Calcium 9.9 Total Bilirubin 0.4 AST 13 ALT 8 Alkaline Phosphatase 69 Total Protein 7.3 Albumin 4.6 Globulin 2.7 Albumin/Globulin Ratio 1.7 TSH 1.113 Urine Color Yellow Urine Appearance Clear Urine pH 5.5 Ur Specific [place] 1.018 Urine Protein Negative Urine Glucose (UA) Negative Urine Ketones Negative Urine Blood 1+ H Urine Nitrite Negative Urine Bilirubin Negative Urine Urobilinogen Negative Ur Leukocyte Esterase Negative Urine WBC (Auto) 0-5 Urine RBC (Auto) 3-5 H U Hyaline Cast (Auto) 0-2 U Epithel Cells (Auto) 0-2 Urine Bacteria (Auto) None Seen Salicylates < 3.0 L Urine Opiates Screen Neg Ur Methadone, Qual Pos H U Methadone Metabolites >55805 H Ur Methadone Confirm >56835 H Urine Fentanyl Screen Neg Acetaminophen 10 Urine Barbiturates Neg Ur Phencyclidine (PCP) Neg U Amphetamin/Meth Scrn Neg Urine MDEA negative MDMA (Ecstasy) Screen Pos H MDMA negative Urine MDMA negative U Benzodiazepines Scrn Neg Ur Cocaine Metabolite Neg U Marijuana (THC) Screen Neg Drug Screen Comment SEE NOTE Ethyl Alcohol mg/dL < 10.0 SARS-CoV-2, RNA, NAAT NEGATIVE Hospital Course (1) Post traumatic stress disorder (PTSD): (2) Generalized anxiety disorder with panic attacks: (3) MDD (major depressive disorder), recurrent episode: (4) Chronic pain: Plan 05/03/2024: Schedule Klonopin 0.5 mg twice daily plus Klonopin 0.5 mg daily as needed. Increase prazosin to 2 mg at bedtime. 05/02/2024: Start prazosin 1 mg at bedtime. 05/01/2024: -Continue current medications and tx plan. 04/30/2024: The patient was admitted to the [facility] ([facility] mental health unit) on q15 min checks (behavioral with suicide precautions) for safety. The patient will participate in group, recreational, and milieu therapies and will be offered additional individual and family sessions as clinically appropriate. -Continue LEAF[employer]OR methadone, pain management medications, switch [employer]OR Klonopin 0.5mg TID to TID prn -Discontinue Wellbutrin -Start Luvox 50mg qd -Start mirtazapine 15mg HS -Start propranolol 10mg BID prn for anxiety/panic attacks Mental Health & Subst Abuse Tx Psychiatrist Name of Psychiatrist: Dr. Evelyn Mcmanus Psychiatrist's Date Of Appointment With Psychiatric Provider: 06/03/24 Time of Appointment with Psychiatrist: 4:25 pm-in person [facility] Name of Therapist: Viky Robles Date of Therapist Appointment: 05/07/2024 Time of Therapist Appointment: 1430 Therapy Appointment Comment: at [facility] Post Discharge Appointments Primary Care Physician Name Of Family Doctor/PCP: Marifer Ellis ([facility] [employer]ER) at [facility] Date of Future Appointment with PCP: 05/21/2024 Time of Appointment with PCP: 929 Drawbridge Operator Name of Drawbridge Operator: Roosevelt Olivas Date of Appointment with Drawbridge Operator: 05/13/24 Time of Appointment with Drawbridge Operator: 1500 Drawbridge Operator Appointment Comment: 05/25/2024 @ 1500 Appointments will be VIA telephone Contact Information Discharge Discharge Address: [address] [place] [address] J[place] Ballard [address] Discharge Plan Discharge Items Patient Disposition: Home - Self-Care Reason For Visit: MAJOR DEPRESSIVE DISORDER Discharge Diagnosis: Post Traumatic Stress Disorder Generalized Anxiety Disorder with panic attacks Major Depressive Disorder Chronic Pain Condition on Discharge: Good Activity: Resume your previous activity Non-emergency contact: Primary Care Provider and Psychiatrist Call non-emergency contact if: you have any medication questions Follow-up/Referrals: Diane Raman M.D. [Primary Care Provider] - Diet: Regular Addtl Attending Provider Instructions: Continue Clonazepam 0.5mg in the morning and evening, attempt to cut out afternoon dose Continue Fluvoxamine (Luvox) 25mg daily, increase dose per outpatient psychiatrist's recommendations Continue Prazosin 3mg at bedtime, increase dose per outpatient psychiatrist's recommendations Continue Mirtazapine 15mg at bedtime Take Propranolol 10mg twice daily NEEDED for physical symptoms of anxiety STOP Wellbutrin (Bupropion) Pending Studies at Discharge: No Stand-Alone Forms: My [employer], Smoking Cessation Medications and DC Order Prescriptions: New nicotine (polacrilex) [Nicorette] 2 mg Gum 2 mg MT PRN PRN (Reason: nicotine cravings) Qty: 110 0RF prazosin 1 mg Capsule 3 mg PO HS Qty: 90 1RF propranolol 10 mg Tablet 10 mg PO BID PRN (Reason: anxiety) Qty: 60 0RF lidocaine 5 % Adhesive Patch,Medicated 1 patch transdermal QAM Qty: 30 1RF mirtazapine 15 mg Tablet 15 mg PO HS Qty: 30 1RF fluvoxamine 25 mg tablet 25 mg PO DAILY Qty: 30 1RF loperamide 2 mg capsule 2 mg PO Q6H PRN (Reason: loose stool) Qty: 15 0RF Continued methadone [Methadone Intensol] 10 mg/mL Concentrate 215 mg PO QAM ibuprofen [IBU] 800 mg Tablet 800 mg PO QPM acetaminophen [Acetaminophen Extra Strength] 500 mg Tablet 1,000 mg PO BID Tums 300 mg (750 mg) Tablet,Chewable 600 - 900 mg PO 2XD dicyclomine 20 mg tablet 20 mg PO Q6H PRN (Reason: abdominal pain) Qty: 30 3RF Rx Instructions: Q6 as needed clonazepam [Klonopin] 0.5 mg tablet 0.5 mg PO 3XD hydroxyzine pamoate [Vistaril] 25 mg capsule 25 mg PO 1XD Discontinued bupropion HCl [Wellbutrin SR] 150 mg tablet sustained-release 12 hr 150 mg PO DAILY bupropion HCl [Wellbutrin] 75 mg Tablet 75 mg PO 1XD Rx Instructions: take every day at noon Discharge Orders: Discharge Order (Routine); Ordered 05/04/24 Ordered By: Uday Romo Admission Data Admit Date/Time: 04/30/24 09:22 Attending Provider: Angela Bellamy Admit Provider: Angela Bellamy Primary Care Provider: Diane Raman C[place] [address] D/C day mgmt > 30 min Patient Type Established History Detailed Exam Detailed Medical Decision Making High Complexity Diagnoses Post traumatic stress disorder (PTSD) F43.10 Generalized anxiety disorder with panic attacks F41.1; F41.0 MDD (major depressive disorder), recurrent episode F33.9 Chronic pain G89.29
== END 2024-05-04 10:55 | disposition home or self-care (01) | DRG 882 ==
LOC: ED 05:10 → 3S 09:22

== ENCOUNTER 2024-09-28 21:34 | Inpatient (IN) ==
--- NOTE | 2024-09-28 22:07 | Emergency Department Note ---
Impression & Plan Suicidal ideation ED Provider Note NAME: CESIA Joshua STATES AGE: 59 SEX: F : 1965 ARRIVES VIA: Walk-In INFORMANT: [Patient] ED PROVIDER(S): [Tremaine Lee MD] CHIEF COMPLAINT: Mental health evaluation HISTORY OF PRESENT ILLNESS: The patient is a 59-year-old female who is on chronic methadone. She has a history of anxiety and posttraumatic stress disorder. She states that for 4 or so days, she has had increased anxiety, she cannot sleep, she has had some suicidal thoughts. She does not feel safe at home and she presents for evaluation asking for a mental health admission. The patient has been hospitalized for her mental health before. She is medicated for psychiatric issues and is taking her prescribed medications routinely. The patient is under more stress as she is now caring for her grandmother and she feels a bit overwhelmed. She typically also feels a bit overwhelmed during the holidays and [place] is just 2 days away. PMHx/PSHx/Social Hx: See Below PHYSICAL EXAM: GENERAL: Patient is in no acute distress. HEENT: No acute trauma, normocephalic atraumatic, mucous membranes moist, no nasal congestion. NECK: No stridor, no adenopathy, no meningismus, trachea is midline. LUNGS: Clear to auscultation bilaterally, no wheeze, no rhonchi, breath sounds equal. HEART: Without murmurs gallops or rubs, regular rate and rhythm. ABDOMEN: Soft, nontender, no peritonitis. EXTREMITIES: No cyanosis, full range of motion of all the joints without pain or difficulty. NEUROLOGIC: Oriented x 3, no acute motor or sensory deficits, no focal weakness. SKIN: No jaundice, no diaphoresis. Psychiatric: Cooperative, voluntary, admits to suicidal ideation. DIFFERENTIAL DIAGNOSIS: Suicidality, depression or anxiety, electrolyte imbalance, thyroid disorder, among others. EMERGENCY DEPARTMENT PROCEDURES: MEDICAL DECISION MAKING: There is a very subtle leukocytosis, this could be consistent with infection or just the stress of her presentation. There was a normal hemoglobin and platelet count. No renal failure or significant electrolyte abnormality. No concerning liver enzyme elevation. Patient appeared to be in a euthyroid state. Urinalysis does not show findings of infection. Aspirin and alcohol levels were undetectable. Tylenol level was very mildly elevated. Urine tox shows methadone. ECG showed a sinus rhythm, no ischemia or dysrhythmia. On exam, the patient was cooperative and resting comfortably. She was voluntary. The patient was felt medically clear. The patient was given oral hydroxyzine and oral Ativan for her anxiety. She was seen by psychiatry case management. Patient was eventually seen by our psychiatric services, 3 S. She has been accepted to their floor. She will be admitted voluntarily. Patient has done well in the ED, she has been cooperative. No issues of agitation or aggression. Prior/Outside records/notes reviewed: None ECG per my interpretation: Indication was left arm pain. The ECG shows a normal sinus rhythm with a rate of 71. There is no ST elevation, no PVCs. There is some poor R wave progression. There is some baseline artifact. QTc was 432. Chronic Medical/Social conditions affecting care: History of post manic stress disorder and chronic methadone use. Care/Management discussed with: Psychiatry case management. Level of care consideration(s): After review of the information above and other included data: --I believe the patient requires escalation of care to admission DISPOSITION: Admission voluntarily to the psychiatry floor, 3 S. Past Med/Surg History Problem List Suicidal ideation (Acute) Nausea & vomiting (Acute) MDD (major depressive disorder), recurrent episode Post traumatic stress disorder (PTSD) Chronic pain Generalized anxiety disorder with panic attacks Abdominal pain Chronic diarrhea Encounter for pre-operative examination Anxiety (Chronic) Back pain (Chronic) IBS (irritable bowel syndrome) (Chronic) Fibromyalgia Generalized anxiety disorder (Chronic) Major depressive disorder, recurrent severe without psychotic features (Chronic) Medical History Medical marijuana use Fibromyalgia Spinal stenosis Degenerative disc disease Chronic back pain History of stomach ulcers IBS (irritable bowel syndrome) Depression Anxiety Migraine Nightmare doxazosin Surgical History History of section x3 History of bilateral tubal ligation History of lumbar discectomy x3 History of lumbar spinal fusion x3 History of colonoscopy History of esophagogastroduodenoscopy (EGD) History of cholecystectomy History of tooth extraction all teeth History of nasal polypectomy x2 Family History Mother Family history of diabetes mellitus Father Family hx colonic polyps Grandmother (Paternal) Family hx colonic polyps Family hx of colon cancer Other No family history of adverse response to anesthesia Social History Smoking Status: Current every day smoker Tobacco Type: Cigarettes Cigarettes Per Day: 10 a day; Second Hand Exposure: No; Do You Dip or Chew Tobacco: No; Hx Alcohol Use: No Hx Substance Use: Yes (medical marijuana card--chronic pain) Last Used Substance Other:: last used over a month Preferred Language: Beninese Communication Ability: Effective Genetics Teacher Required: No Beliefs That Will Affect Care: None Current Living Situation: Significant Other Current Living Situation Comment: Lives with fiance and son Feels Safe at Home: Yes Gender Identity: Female Assistive Devices: Denture - Upper and Glasses Allergies Allergies Allergy/AdvReac Type Severity Reaction Status Date / Time sumatriptan Allergy Severe Anaphylaxis Verified 07/29/19 10:47 Sulfa (Sulfonamide Allergy Intermediate HIVES Verified 07/29/19 10:47 Antibiotics) celecoxib Allergy Mild RASH Verified 07/29/19 10:47 gabapentin Allergy Mild DIZZINESS Verified 07/29/19 10:47 Home Meds Home Medications Medication Instructions Recorded Confirmed methadone 10 mg/mL oral 231 mg PO UD 07/04/18 09/28/24 concentrate (Methadone Intensol) acetaminophen 500 mg tablet 1,000 mg PO BID 03/18/19 09/28/24 (Acetaminophen Extra Strength) ibuprofen 800 mg tablet (IBU) 800 mg PO QPM PRN Pain 03/18/19 09/28/24 calcium carbonate (Tums) 600 - 900 mg PO BID PRN Other 07/29/19 09/28/24 clonazepam 0.5 mg tablet (Klonopin) 0.5 mg PO TID 04/30/24 09/28/24 hydroxyzine pamoate 25 mg capsule 50 mg PO DAILY 04/30/24 09/28/24 (Vistaril) bupropion HCl 100 mg tablet,12 hr 100 mg PO QAM 09/24/24 09/28/24 sustained-release (Wellbutrin SR) fluticasone propionate 50 1 spray intranasal DAILY 09/24/24 09/28/24 mcg/actuation nasal spray,suspension (Flonase Allergy Relief) lidocaine 5 % topical patch 2 patch transdermal QAM 09/28/24 09/28/24 mirtazapine 15 mg tablet (Remeron) 15 mg PO HS 09/28/24 09/28/24 Previous Rx's Medication Instructions Recorded dicyclomine 20 mg tablet 20 mg PO Q6H PRN abdominal pain 08/05/19 #30 tabs nicotine (polacrilex) 2 mg gum 2 mg MT PRN PRN nicotine cravings 05/04/24 (Nicorette) #110 ea Results & Data (ED) Vital Signs Vital Signs - 24 hr 09/28/24 21:40 09/28/24 23:08 Temperature 36.0 C L Temperature Source Temporal Artery Scan Pulse Rate 94 H Pulse Rate [Finger] 82 Pulse Rhythm Regular Pulse Strength Normal Respiratory Rate 18 18 Respiratory Effort / Characteristics Non-Labored Spontaneous Non-Labored Spontaneous Respiratory Depth Normal Normal Respiratory Pattern Regular Regular Blood Pressure 179/81 H Blood Pressure [Left Arm] 153/88 H Blood Pressure Mean 113 Blood Pressure Mean [Left Arm] 109 Blood Pressure Position Sitting Blood Pressure Position [Left Arm] Sitting Pulse Oximetry 96 96 Oxygen Delivery Method Room Air Room Air Sepsis Recent Fever Within 48 Hours No Sepsis New/Unexplained Change in Mental Status N/A Sepsis Action Taken by Nursing No Action Required Home Medications Current Medication List: was personally reviewed by me Laboratory Data Attestation: I reviewed the patient's lab results. 09/28/24 21:57 09/28/24 21:57 Lab Results 09/28/24 09/28/24 Range/Units 21:15 21:57 WBC 10.85 H (4.8-10.8) K/ul RBC 3.87 L (4.20-5.40) M/uL Hgb 12.1 (12.0-16.0) g/dl Hct 34.9 L (37.0-47.0) % MCV 90.2 (80.0-100.0) fL MCH 31.3 (25.0-34.0) pg MCHC 34.7 (32.0-36.0) g/dL RDW Std Deviation 43.4 (36.4-46.3) fL RDW Coeff of Yung 13.2 (11.5-14.5) % Plt Count 348 (130-400) K/uL MPV 8.4 L (9.4-12.4) fL Immature Gran % (Auto) 0.5 % Neut % (Auto) 70.9 % Lymph % (Auto) 23.3 % Lawrence % (Auto) 4.7 % Eos % (Auto) 0.2 % Baso % (Auto) 0.4 % Neut # (Auto) 7.70 H (1.40-6.50) K/uL Lymph # (Auto) 2.53 (1.20-3.40) K/uL Lawrence # (Auto) 0.51 (0.11-0.59) K/uL Eos # (Auto) 0.02 (0.00-0.50) K/uL Baso # (Auto) 0.04 (0.00-0.20) K/uL Immature Gran # (Auto) 0.05 (0.01-0.20) K/uL Sodium 138 (136-145) mmol/L Potassium 3.5 (3.5-5.1) mmol/L Chloride 102 (98-107) mmol/L Carbon Dioxide 28 (21-32) mmol/L Anion Gap 8 (3-11) BUN 14 (6-23) mg/dl Creatinine 1.16 (0.6-1.2) mg/dl Est Cr Clr Drug Dosing 51.3 ml/min eGFR 54.99 BUN/Creatinine Ratio 12.1 (10-20) Glucose 86 (70-99(Fasting)) mg/dl Calcium 10.2 (8.6-10.3) mg/dl Total Bilirubin 0.3 (0.2-1.0) mg/dl AST 19 (13-39) U/L ALT 13 (7-52) U/L Alkaline Phosphatase 70 (34-104) U/L Total Protein 8.3 (6.0-8.3) gm/dl Albumin 5.0 (3.4-5.0) gm/dl Globulin 3.3 (2.5-4.0) gm/dl Albumin/Globulin Ratio 1.5 (0.9-2) TSH 2.244 (0.300-4.500) uIu/ml Urine Color Yellow Urine Appearance Clear (Clear) Urine pH 5.5 (4.5-7.5) Ur Specific [place] 1.008 (1.000-1.030) Urine Protein Negative (Negative) Urine Glucose (UA) Negative (Negative) Urine Ketones Negative (Negative) Urine Blood 1+ H (Negative) Urine Nitrite Negative (Negative) Urine Bilirubin Negative (Negative) Urine Urobilinogen Negative (Negative) Ur Leukocyte Esterase Negative (Negative) Urine WBC (Auto) 0-5 (0-5) /hpf Urine RBC (Auto) 0-2 (0-2) /hpf U Hyaline Cast (Auto) 0-2 (0-2) /lpf U Epithel Cells (Auto) 0-2 (0-2) /hpf Urine Bacteria (Auto) None Seen (None Seen) Salicylates < 3.0 L (3.0-30) mg/dl Urine Opiates Screen Neg (Neg) Ur Methadone, Qual Pos H (Neg) Urine Fentanyl Screen Neg (Neg) Acetaminophen 9 L (10-30) ug/ml Urine Barbiturates Neg (Neg) Ur Phencyclidine (PCP) Neg (Neg) U Amphetamin/Meth Scrn Neg (Neg) MDMA (Ecstasy) Screen Neg (Neg) U Benzodiazepines Scrn Neg (Neg) Ur Cocaine Metabolite Neg (Neg) U Marijuana (THC) Screen Neg (Neg) Ethyl Alcohol mg/dL < 10.0 (<10.0) mg/dl SARS-CoV-2, RNA, NAAT NEGATIVE (NEGATIVE) Administered Medications Discontinued Medications Hydroxyzine HCl (Hydroxyzine Hcl 25 Mg Tab) 50 mg PO NOW STA Stop: 09/28/24 22:04 Last Admin: 09/28/24 22:12 Dose: 50 mg Documented By: KELBY Lorazepam (Lorazepam 1 Mg Tab) 1 mg SL NOW STA Stop: 09/28/24 22:04 Last Admin: 09/28/24 22:12 Dose: 1 mg Documented By: KELBY Discharge Plan Visit Data Chief Complaint: Mental Health Evaluation Stated Complaint: EVALUATION ED Provider: Tremaine Lee Discharge Problem: Suicidal ideation Patient Disposition: Admitted As Inpatient Condition: Good Forms Stand Alone Forms: [facility], Suicide Prevention Resources Prescriptions Prescriptions: No Action methadone [Methadone Intensol] 10 mg/mL Concentrate 231 mg PO UD Rx Instructions: per pt the dose 231 mg qam. ibuprofen [IBU] 800 mg Tablet 800 mg PO QPM PRN (Reason: Pain) acetaminophen [Acetaminophen Extra Strength] 500 mg Tablet 1,000 mg PO BID Tums 300 mg (750 mg) Tablet,Chewable 600 - 900 mg PO BID PRN (Reason: Other) dicyclomine 20 mg tablet 20 mg PO Q6H PRN (Reason: abdominal pain) Qty: 30 3RF Rx Instructions: Q6 as needed clonazepam [Klonopin] 0.5 mg tablet 0.5 mg PO TID hydroxyzine pamoate [Vistaril] 25 mg capsule 50 mg PO DAILY nicotine (polacrilex) [Nicorette] 2 mg Gum 2 mg MT PRN PRN (Reason: nicotine cravings) Qty: 110 0RF bupropion HCl [Wellbutrin SR] 100 mg tablet sustained-release 12 hr 100 mg PO QAM fluticasone propionate [Flonase Allergy Relief] 50 mcg/actuation [place],Suspension 1 spray INTRANASAL DAILY Rx Instructions: administer into each nostril lidocaine 5 % adhesive patch,medicated 2 patch transdermal QAM mirtazapine [Remeron] 15 mg tablet 15 mg PO HS Referrals Referrals: Diane Raman M.D. [Outside Practitioners] -
[2024-09-28] MEDS: LORazepam 1 MG TAB SL STA (22:12)
[2024-09-28] MEDS: hydrOXYzine HCl 25 MG TAB PO STA (22:12)
[2024-09-28 22:21] LABS: Appearance Urine Clear (Clear); Bacteria Urine Automated None Seen (None Seen); Bilirubin Urine Negative (Negative); Blood Urine 1+ (Negative); Cast Urine Automated 0-2 /lpf (0-2); Color Urine Yellow; Epithelial Cell Urine Auto 0-2 /hpf (0-2); Glucose Urine UA Negative (Negative); Ketones Urine Negative (Negative); Leukocyte Esterase Urine Negative (Negative); Nitrite Urine Negative (Negative); Protein Urine Negative (Negative); RBC Urine Automated 0-2 /hpf (0-2); Specific Gravity Urine 1.008 (1.000-1.030); Urobilinogen Urine Negative (Negative); WBC Urine Automated 0-5 /hpf (0-5); pH Urine 5.5 (4.5-7.5)
[2024-09-28 22:31] LABS: Acetaminophen 9 ug/ml (10-30); Salicylate < 3.0 mg/dl (3.0-30)
[2024-09-28 22:32] LABS: Albumin Globulin Ratio 1.5 (0.9-2); BUN Creatinine Ratio 12.1 (10-20); Basophils # (auto) 0.04 K/uL (0.00-0.20); Basophils % (auto) 0.4 %; Bilirubin,Total 0.3 mg/dl (0.2-1.0); Calcium 10.2 mg/dl (8.6-10.3); Creatinine Clr Calc Pharmacy 51.3 ml/min; Eosinophils # (auto) 0.02 K/uL (0.00-0.50); Eosinophils % (auto) 0.2 %; Globulin 3.3 gm/dl (2.5-4.0); Hematocrit (blood only) 34.9 % (37.0-47.0); Hemoglobin 12.1 g/dl (12.0-16.0); Immature Granulocytes # (auto) 0.05 K/uL (0.01-0.20); Immature Granulocytes % (auto) 0.5 %; Lymphocytes # (auto) 2.53 K/uL (1.20-3.40); Lymphocytes % (auto) 23.3 %; Mean Corpuscular Hemoglobin 31.3 pg (25.0-34.0); Mean Corpuscular Hgb Conc 34.7 g/dL (32.0-36.0); Mean Corpuscular Volume 90.2 fL (80.0-100.0); Mean Platelet Volume 8.4 fL (9.4-12.4); Monocytes # (auto) 0.51 K/uL (0.11-0.59); Monocytes % (auto) 4.7 %; Neutrophils % (auto) 70.9 %; Platelet Count 348 K/uL (130-400); Potassium 3.5 mmol/L (3.5-5.1); RDW Coefficient of Variation 13.2 % (11.5-14.5); RDW Standard Deviation 43.4 fL (36.4-46.3); Red Blood Count 3.87 M/uL (4.20-5.40); Total Protein 8.3 gm/dl (6.0-8.3); White Blood Count 10.85 K/ul (4.8-10.8)
[2024-09-28 22:47] LABS: Thyroid Stimulating Hormone 2.244 uIu/ml (0.300-4.500)
[2024-09-28 22:59] LABS: Amphetamines+Metham, Urine Neg (Neg); Barbiturates, Urine Neg (Neg); Benzodiazepine, Urine Neg (Neg); Cocaine, Urine Neg (Neg); Fentanyl, Urine Neg (Neg); MDMA (Ecstacy), Urine Neg (Neg); Marijuana, Urine Neg (Neg); Methadone, Urine Pos (Neg); Opiate, Urine Neg (Neg); Phencyclidine, Urine Neg (Neg)
[2024-09-29] MEDS ORDERED: SODIUM CHLORIDE 0.65% NA SOLN 45 ML (OCEAN) PRN (00:50)
[2024-09-29] MEDS ORDERED: MAGNESIUM HYDROXIDE SUSP 30 ML UDC PO PRN (00:50)
[2024-09-29] MEDS: ACETAMINOPHEN 325 MG TAB PO PRN (01:13)
[2024-09-29] MEDS: MIRTAZAPINE TAB 15 MG TAB PO STA (01:14)
[2024-09-29] MEDS ORDERED: CALCIUM CARBONATE 500 MG CHEWABLE TAB PO PRN (01:31)
[2024-09-29] MEDS: METHADONE ORAL SOLN 2 MG/ML PO SCH (06:59)
[2024-09-29] MEDS: PATIENT'S OWN CONTROLLED MED 3 PO SCH (07:11)
[2024-09-29] MEDS: buPROPion SR 100 MG TABCR PO SCH (09:03)
[2024-09-29] MEDS: FLUTICASONE PROPIONATE NA SPR 16 GM BTL SCH (09:05)
[2024-09-29] MEDS: clonazePAM 0.5 MG TAB PO SCH (09:05)
[2024-09-29] MEDS: LIDOCAINE 5% 1 PATCH TD SCH (09:06)
[2024-09-29] MEDS: NICOTINE POLACRILEX 2 MG GUM MT PRN (11:31)
[2024-09-29] MEDS: ESCITALOPRAM OXALATE 10 MG TAB PO SCH (12:00)
[2024-09-29] MEDS: PROPRANOLOL HCL 10 MG TAB PO SCH (13:46)
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
--- NOTE | 2024-09-29 16:20 | Electrocardiogram Report ---
Test Reason : Blood Pressure : */* mmHG Vent. Rate : 71 BPM Atrial Rate : 71 BPM P-R Int : 160 ms QRS Dur : 86 ms QT Int : 398 ms P-R-T Axes : 52 40 52 degrees QTcB Int : 432 ms Normal sinus rhythm Nonspecific ST abnormality When compared with ECG of 05-Jun-2019 12:34, No significant change was found Confirmed by Domenico Salvador ([id number]) on 09/29/2024 4:19:37 PM Referred By: REFERRED SELF Confirmed By: Domenico Salvador
[2024-09-29] MEDS: IBUPROFEN 800 MG TAB PO PRN (17:47)
[2024-09-29] MEDS: ARIPiprazole 5 MG TAB PO SCH (21:23)
[2024-09-29] MEDS: MIRTAZAPINE TAB 15 MG TAB PO SCH (21:24)
[2024-09-30 07:41] LABS: Chol HDL Ratio 4.2 (0-5)
[2024-09-30 07:56] LABS: Estimated Average Glucose 123 mg/dl; Hemoglobin A1C 5.9 % (4.5-5.6)
[2024-09-30] MEDS: CHOLECALCIFEROL 125 MCG (5,000 UNITS) TAB PO SCH (09:07)
[2024-09-30] MEDS: NICOTINE POLACRILEX 2 MG GUM MT PRN (09:19)
[2024-09-30] MEDS: INFLUENZA VACC TS2024-25(6m+)/PF (IIV3) 0.5mL Syr IM ONE (09:21)
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
[2024-09-30] MEDS: PSYLLIUM or GUAR GUM FIBER 4GM PACKET PO PRN (13:59)
[2024-09-30] MEDS: DICYCLOMINE HCL 20 MG TAB PO PRN (17:10)
[2024-09-30] MEDS: ALUMINUM/MAGNESIUM SUSP 30 ML UDC PO PRN (17:13)
[2024-10-01] MEDS: METHADONE ORAL SOLN 2 MG/ML PO SCH (06:19)
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
[2024-10-01] MEDS: IBUPROFEN 200 MG TAB PO PRN (15:24)
[2024-10-01 23:03] LABS: Methadone, Ur Metabolite >10000 ng/mL (<100); Methadone, Ur Verification >10000 ng/mL (<100)
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
[2024-10-02] MEDS: hydrOXYzine HCl 25 MG TAB PO PRN (14:53)
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
[2024-10-03] MEDS: LOPERAMIDE HCL 2 MG CAP PO PRN (10:42)
[2024-10-04 06:22] VITALS: TEMP 98.1
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
[2024-10-04] MEDS: ARIPiprazole 5 MG TAB PO SCH (21:02)
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
[2024-10-05 20:44] VITALS: O2SAT 100
[2024-10-05] MEDS: hydrOXYzine HCl 25 MG TAB PO PRN (20:49)
[2024-10-06 06:38] VITALS: RESP 16
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
[2024-10-06 08:43] VITALS: BP 161/77; PULSE 67
== END 2024-10-06 10:07 | disposition home or self-care (01) | DRG 882 ==
LOC: ED 21:34 → SUATTDRO 09-29 00:17 → 3S 09-29 00:17 → ED 09-29 00:31